=== PATIENT | male | born 1930 | race Caucasian/White ===

== ENCOUNTER 2017-05-12 11:42 | Inpatient (IN) ==
[2017-05-12] MEDS ORDERED: 0.9 % SODIUM CHLORIDE 1,000 ML IV ONE (12:08)
[2017-05-12 13:05] LABS: Basophils # (Auto) 0 K/mcL (0.0-0.3); Basophils % (Auto) 0.7 % (0.0-2.0); Eosinophils # (Auto) 0.1 K/mcL (0.0-0.7); Eosinophils % (Auto) 1.9 % (0.0-7.0); Granulocytes % (Auto) 68.3 % (38.0-78.0); Lymphocytes # (Auto) 1.4 K/mcL (1.5-4.8); Lymphocytes % (Auto) 21.2 % (15.5-49.0); Mean Cell Volume 108.4 fL (80.0-100.0); Mean Corpuscular HGB Conc 33.2 g/dL (31.0-36.0); Monocytes # (Auto) 0.5 K/mcL (0.1-0.9); Monocytes % (Auto) 7.9 % (1.0-12.0); Platelet Count 95 K/mcL (140-440); RBC 3.39 M/mcL (4.50-5.90)
[2017-05-12 13:24] LABS: ALT/SGPT 31 U/l (0-40); Albumin 3.5 gm/dL (3.2-5.2); Albumin/Globulin Ratio 1.3 (1.0-2.3); Alkaline Phosphatase 89 U/L (39-117); Blood Urea Nitrogen 47 mg/dl (8-23)
--- NOTE | 2017-05-12 14:33 | XRay Report ---
CLINICAL INFORMATION: Dyspnea COMPARISON: 11/01/2015 FINDINGS: The heart is moderately enlarged - slightly increased. Pacemaker leads in stable, satisfactory position. Mediastinum is normal. The pulmonary vessels are slightly distended and there is minimal interstitial edema. No infiltrates or effusions. IMPRESSION: Mild CHF Interpreted and Authenticated by: Darrian Cody 05/12/17
--- NOTE | 2017-05-12 15:15 | Emergency Department Note ---
General Adult HPI - General Chief complaint: Shortness of Breath/Dyspnea Stated complaint: sob, wheezing Time Seen by Provider: 05/12/17 11:48 Source: patient Mode of arrival: ambulatory Limitations: no limitations - History of Present Illness HPI Narrative: 86-year-old male presents with shortness of breath and wound to the right knee. Shortness of breath but worsening over the last 3 weeks. Much worse over the last few days according to his . Patient is extremely hard of hearing and poor historian. is answering most questions. She states he does have a history of CHF so she was thinking it was related to CHF but he is definitely getting worse. She also has some generalized weakness and is complaining of being very cold. He denies any pain. Positive chills, unknown fever. No dysuria or frequency. No home treatments. No recent travel. - Related Data Home Medications Medication Instructions Recorded Confirmed Levothyroxine [Synthroid] 25 mcg PO DAILY 09/17/15 05/12/17 Lovastatin 10 mg PO DAILY 09/17/15 05/12/17 carvedilol 12.5 mg tablet 25 mg PO BID 07/27/16 05/12/17 Furosemide [Lasix] 20 mg PO DAILY 05/12/17 05/12/17 Potassium Chloride [Klor-Con M20] 20 meq PO BID 05/12/17 05/12/17 Allergies Allergy/AdvReac Type Severity Reaction Status Date / Time No Known Drug Allergies Allergy Verified 04/08/17 10:20 Review of Systems All systems ED: reviewed and negative except as stated. Past Medical History - Past Medical History Medical history: Reports: aortic aneurysm, CHF, hyperlipidemia, hypertension, TIA, other (Pressure ulcers, CAD, bradycardia, renal insufficiency, peripheral vascular disease) Surgical history ED: Reports: cataract, pacemaker/AICD, other (AAA repair, cataract surgery, inguinal abscess I&D) - Social History smoking status: Former smoker Alcohol use: Reports: None Drug use: Reports: none Physical Exam - General Limitations: no limitations General appearance: alert - Head Head exam: atraumatic, normocephalic, normal inspection - Eye Eye exam: Present: normal appearance. Absent: conjunctival injection - ENT ENT exam: normal exam, normal oropharynx, mucous membranes moist, TM's normal bilaterally, normal external ear exam - Neck Neck exam: Present: normal inspection, trachea midline. Absent: tenderness, lymphadenopathy - Chest Chest inspection: Present: normal inspection, symmetric chest wall rise - Respiratory Respiratory exam: Present: other (Lung sounds diminished at the bases bilaterally otherwise clear throughout). Absent: respiratory distress, accessory muscle use - Cardiovascular Cardiovascular exam: Present: regular rate, normal heart sounds - Abdominal Exam Abdominal exam: Present: soft, normal bowel sounds. Absent: distention, tenderness - Extremities Exam Extremities exam: Present: normal inspection, normal capillary refill. Absent: pedal edema - Neurological Exam Neurological exam: Present: alert, oriented X3 (But very hard of hearing) - Psychiatric Psychiatric exam: Present: normal affect, normal mood - Skin Skin exam: Present: warm, dry, intact, normal color Course Course Narrative: VQ scan negative for PE. Dr. De La Paz, hospitalist agrees to admit patient. Vital Signs Temperature 95.9 F L 05/12/17 11:42 Pulse Rate 61 05/12/17 11:42 Respiratory Rate 19 05/12/17 11:42 Blood Pressure 97/67 05/12/17 11:42 Pulse Oximetry (%) 100 05/12/17 11:42 Temperature 95.9 F L 05/12/17 11:42 Pulse Rate 101 H 05/12/17 16:53 Respiratory Rate 20 05/12/17 16:53 Blood Pressure 99/58 05/12/17 16:53 Pulse Oximetry (%) 99 05/12/17 16:53 Medical Decision Making - Lab Data Lab results reviewed: Yes I reviewed the patient's lab results. Result diagrams: 05/12/17 12:03 05/12/17 12:03 Lab Results 05/12/17 05/12/17 05/12/17 Range/Units 12:03 12:03 12:03 WBC 6.7 (4.5-11.0) K/mcL RBC 3.39 L (4.50-5.90) M/mcL Hgb 12.2 L (13.5-16.5) g/dL Hct 36.7 L (41.0-55.0) % MCV 108.4 H (80.0-100.0) fL MCH 36.0 H (26.0-34.0) pg MCHC 33.2 (31.0-36.0) g/dL RDW 20.0 H (11.5-14.5) % Plt Count 95 L (140-440) K/mcL MPV 8.9 (7.4-10.4) fL Gran % 68.3 (38.0-78.0) % Lymph % (Auto) 21.2 (15.5-49.0) % [place] % (Auto) 7.9 (1.0-12.0) % Eos % (Auto) 1.9 (0.0-7.0) % Baso % (Auto) 0.7 (0.0-2.0) % Gran # 4.6 (1.8-8.0) K/mcL Lymph # (Auto) 1.4 L (1.5-4.8) K/mcL [place] # (Auto) 0.5 (0.1-0.9) K/mcL Eos # (Auto) 0.1 (0.0-0.7) K/mcL Baso # (Auto) 0 (0.0-0.3) K/mcL D-Dimer 7.08 H (0.00-0.40) ug/ml VBG Lactic Acid (0.5-2.2) mmol/L Sodium 138 (133-145) mmol/L Potassium 4.9 (3.3-5.1) mmol/L Chloride 101 (96-108) mmol/L Carbon Dioxide 20 L (22-30) mmol/L Anion Gap 17.0 H (8-16) BUN 47 H (8-23) mg/dl Creatinine 2.2 H (0.7-1.2) mg/dl GFR Calculation 26 Glucose 124 H (70-105) mg/dL Calcium 8.8 (8.6-10.4) mg/dl Total Bilirubin 2.8 H (0.0-1.0) mg/dL AST 37 (0-37) U/l ALT 31 (0-40) U/l Alkaline Phosphatase 89 (39-117) U/L Troponin T (0-0.03) ng/ml NT-Pro-B Natriuret Pep 17516.0 H (0-450) pg/ml Total Protein 6.3 (5.9-8.4) gm/dL Albumin 3.5 (3.2-5.2) gm/dL Globulin 2.8 (2.2-3.7) gm/dL Albumin/Globulin Ratio 1.3 (1.0-2.3) Urine Color Urine Appearance Urine pH (5.0-9.0) Ur Specific [place] (1.000-1.035) Urine Protein (NEG) mg/dL Urine Glucose (UA) (NEG) mg/dL Urine Ketones (NEG) mg/dL Urine Occult Blood (<0.03) mg/dL Urine Nitrate (NEG) Urine Bilirubin (NEG) mg/dL Urine Urobilinogen (NEG) mg/dL Ur Leukocyte Esterase (NEG) /uL Urine RBC (0-1) /hpf Urine WBC (0-4) /hpf Ur Squamous Epith Cells (0-4) /hpf Ur Transition Epith Cell (0-2) /hpf Amorphous Crystals (0) /hpf Urine Bacteria (0) /hpf Urine Mucus (0) /hpf Ur Culture Indicated? 05/12/17 05/12/17 05/12/17 Range/Units 12:03 12:03 15:00 WBC (4.5-11.0) K/mcL RBC (4.50-5.90) M/mcL Hgb (13.5-16.5) g/dL Hct (41.0-55.0) % MCV (80.0-100.0) fL MCH (26.0-34.0) pg MCHC (31.0-36.0) g/dL RDW (11.5-14.5) % Plt Count (140-440) K/mcL MPV (7.4-10.4) fL Gran % (38.0-78.0) % Lymph % (Auto) (15.5-49.0) % [place] % (Auto) (1.0-12.0) % Eos % (Auto) (0.0-7.0) % Baso % (Auto) (0.0-2.0) % Gran # (1.8-8.0) K/mcL Lymph # (Auto) (1.5-4.8) K/mcL [place] # (Auto) (0.1-0.9) K/mcL Eos # (Auto) (0.0-0.7) K/mcL Baso # (Auto) (0.0-0.3) K/mcL D-Dimer (0.00-0.40) ug/ml VBG Lactic Acid 3.7 H (0.5-2.2) mmol/L Sodium (133-145) mmol/L Potassium (3.3-5.1) mmol/L Chloride (96-108) mmol/L Carbon Dioxide (22-30) mmol/L Anion Gap (8-16) BUN (8-23) mg/dl Creatinine (0.7-1.2) mg/dl GFR Calculation Glucose (70-105) mg/dL Calcium (8.6-10.4) mg/dl Total Bilirubin (0.0-1.0) mg/dL AST (0-37) U/l ALT (0-40) U/l Alkaline Phosphatase (39-117) U/L Troponin T < 0.01 (0-0.03) ng/ml NT-Pro-B Natriuret Pep (0-450) pg/ml Total Protein (5.9-8.4) gm/dL Albumin (3.2-5.2) gm/dL Globulin (2.2-3.7) gm/dL Albumin/Globulin Ratio (1.0-2.3) Urine Color Lara Urine Appearance Cloudy Urine pH 6.0 (5.0-9.0) Ur Specific [place] 1.013 (1.000-1.035) Urine Protein 30 A (NEG) mg/dL Urine Glucose (UA) Negative (NEG) mg/dL Urine Ketones Neg (NEG) mg/dL Urine Occult Blood 0.2 A (<0.03) mg/dL Urine Nitrate Neg (NEG) Urine Bilirubin Neg (NEG) mg/dL Urine Urobilinogen 2.0 A (NEG) mg/dL Ur Leukocyte Esterase 500 A (NEG) /uL Urine RBC 20 H (0-1) /hpf Urine WBC > 182 H (0-4) /hpf Ur Squamous Epith Cells 0 (0-4) /hpf Ur Transition Epith Cell 2 (0-2) /hpf Amorphous Crystals Few A (0) /hpf Urine Bacteria 0 (0) /hpf Urine Mucus Few (0) /hpf Ur Culture Indicated? Yes - Radiology Data Radiology results reviewed: Yes I reviewed the patient's radiology results. Disposition Pt seen by [facility]ANT/PA only: No Clinical Impression: Urinary tract infection, CHF (congestive heart failure) Disposition: Xfer As Inpt ([facility]) Condition: Fair Referrals: Christi Santamaria MD [Primary Care Provider] - Time of Disposition: 16:58
[2017-05-12 16:10] LABS: Appearance,Urine CLOUDY; Bacteria,Urine 0 /hpf (0); Bilirubin,Urine NEG (NEG); Color,Urine AMBER; Glucose,Urine (UA) NEGATIVE (NEG); Leukocyte Esterase,Urine 500 /uL (NEG); Mucus,Urine FEW /hpf (0); Nitrate,Urine NEG (NEG); Protein,Urine 30 mg/dL (NEG); Specific Gravity,Urine 1.013 (1.000-1.035); Urine Amorphous Crystals FEW /hpf (0); Urine Blood 0.2 mg/dL (<0.03); Urine RBC 20 /hpf (0-1); Urine Squamous Epithelial Cell 0 /hpf (0-4); Urine Transitional Epi Cells 2 /hpf (0-2); Urine WBC > 182 /hpf (0-4)
--- NOTE | 2017-05-12 17:46 | Emergency Department Note ---
ED Note Addendum Note Addendum: I examined this patient and agree with [facility]'s assessment and plan for admission.
[2017-05-12] MEDS ORDERED: cefTRIAXone 1 GM in DEXTROSE 5% IN WATER 50 ML IV ONE (18:21)
[2017-05-12] MEDS ORDERED: ONDANSETRON 4 MG/2 ML VIAL IV PRN (19:23)
[2017-05-12] MEDS ORDERED: HYDROcodone/APAP 5/325MG TABLET PO PRN (19:23)
[2017-05-12] MEDS ORDERED: NALOXONE HCL 0.4 MG/ML VIAL IV PRN (19:23)
[2017-05-12] MEDS ORDERED: ACETAMINOPHEN 325 MG TABLET PO PRN (19:23)
[2017-05-12] MEDS ORDERED: 0.9 % SODIUM CHLORIDE 500 ML IV ONE (19:23)
--- NOTE | 2017-05-12 20:16 | Internal Med History&Physical ---
Medical - H&P: [facility] Patient information: Note initiated : 05/12/17 at 8:16 pm Service Date, if different from initiated Date: [] Patient: Tico Dominguez 86 y/o M admitted on 05/12/17 for sob, wheezing. Chief Complaint: [] History of present illness: Mr. Dominguez is a 86 year old Male with multple medical issues presents to the ER with shortness of breath, weakness and possibly some confusion. The patient is a very poor historian and did not provide any meaningful history , his who volunteer in this hospital was at bedside who provided much of the history The patient has multiple medical issues and has been progressively getting worse over the last 2-3 weeks. he has been more weak, tired fatigued and progressively more short of breath and has been wheezing. She has noticed that his effort tolerance has reduced significantly. His condition deteriorated more rapidly over the last 1 week. He fell down and scrapped his knee. The patient notes the only symptom he has is that he is feeling cold. Beyond that he did not complain much. According to the the patient also has had some decline in his mental status. In the ER his temp was on the lower end, labs showed wbc 6.7, ghb 12.2, NA 138, K 4.9, bicarb 20, creat 2.2 (has ckd) glucose 124. D dmier was 7, Lactic acide 3.7, bNP 17434, trop neg Ua suggestive of UTI, muro placed with significant amount of cloudy urine. CXR done which showed mild chf, no pneumonia VQ scan done which was negative for PE. The patient was therefore admitted to the hospital for further management. 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 (Chronic) Unspecified systolic heart failure (Chronic) Atherosclerotic heart disease of [place] coronary artery without angina pectoris (Chronic) Mixed hyperlipidemia (Chronic) Bradycardia (Chronic) Smoking (Chronic) CHF (congestive heart failure) (Chronic) Renal insufficiency (Chronic) CAD (coronary artery disease) (Chronic) Unspecified kidney failure (Chronic) Left leg cellulitis (Acute) Systolic heart failure, chronic (Acute) HTN (hypertension) (Acute) Peripheral vascular disease (Acute) Renal failure, acute on chronic (Acute) TIA (transient ischemic attack) (Chronic) Surgical history: Past Surgical History (Last Reviewed 04/08/17 @ 10:21 by Selena Campuzano RN) History of AAA (abdominal aortic aneurysm) repair (Chronic) History of cardiac pacemaker (Chronic) History of cataract surgery (Chronic) History of surgery (Chronic) Pertinent family history: Family History (Last Reviewed 04/08/17 @ 10:21 by Selena Campuzano RN) Father Stroke Mother Heart disease Medical - H&P: Meds Home Medications Medication Instructions Recorded Confirmed Type Levothyroxine [Synthroid] 25 mcg PO DAILY 09/17/15 05/12/17 History Lovastatin 10 mg PO DAILY 09/17/15 05/12/17 History carvedilol 12.5 mg tablet 25 mg PO BID 07/27/16 05/12/17 History Furosemide [Lasix] 20 mg PO DAILY 05/12/17 05/12/17 History Potassium Chloride [Klor-Con M20] 20 meq PO BID 05/12/17 05/12/17 History Allergies Allergy/AdvReac Type Severity Reaction Status Date / Time No Known Drug Allergies Allergy Verified 04/08/17 10:20 Medical - H&P: Exam - Constitutional Vitals: Temp Pulse Resp BP Pulse Ox 97.8 F 63 18 107/88 91 05/12/17 19:10 05/12/17 19:10 05/12/17 19:10 05/12/17 19:10 05/12/17 19:10 Exam: GENERAL: The patient is a well-developed, well-nourished in no apparent distress. Is alert and oriented x1. VITAL SIGNS: Reviewed and as noted elsewhere. HEENT: Head is normocephalic and atraumatic. Extraocular muscles are intact. Pupils are equal, round, and reactive to light. Nares appeared normal. Mouth appears any without lesions. Mucous membranes are dry NECK: Normal to inspection, Supple, No lymphadenopathy or thyromegaly. LUNGS: Air entry equal on both sides, present wheezing,No crackles or rhonchi noted. No accessory muscles of respiration HEART: Regular rate and rhythm normal, S1 and S2 heard, no Gallop, S3 or Rub Noted, No Gross murmur heard. ABDOMEN: Soft, nontender, and nondistended. Positive bowel sounds. No hepatosplenomegaly was noted. muro noted with 2000ml of dark mildly cloudy urine. EXTREMITIES: No cyanosis, clubbing, rash, lesions or edema, right knee has a abrasion, 2x2 cms, no e/o infection. NEUROLOGIC: Cranial nerves II through XII are grossly intact. Motor and Sensory System Grossly Intact PSYCHIATRIC: confused, did not maintain eye contact, did not answer questions appropriately. SKIN: No ulceration or wounds noted, No jaundice, No rash noted. Medical - H&P: Reslt - Labs CBC & Chem 7: 05/12/17 12:03 05/12/17 12:03 Labs: Short CBC 05/12/17 Range/Units 12:03 WBC 6.7 (4.5-11.0) K/mcL Hgb 12.2 L (13.5-16.5) g/dL Hct 36.7 L (41.0-55.0) % Plt Count 95 L (140-440) K/mcL BMP 05/12/17 12:03 Sodium 138 Potassium 4.9 Chloride 101 Carbon Dioxide 20 L BUN 47 H Creatinine 2.2 H Glucose 124 H Calcium 8.8 Cardiac Enzymes 05/12/17 Range/Units 12:03 Troponin T < 0.01 (0-0.03) ng/ml Liver Function 05/12/17 Range/Units 12:03 Total Bilirubin 2.8 H (0.0-1.0) mg/dL AST 37 (0-37) U/l ALT 31 (0-40) U/l Alkaline Phosphatase 89 (39-117) U/L Albumin 3.5 (3.2-5.2) gm/dL Urine 05/12/17 Range/Units 15:00 Urine Color Lara Urine Appearance Cloudy Urine pH 6.0 (5.0-9.0) Ur Specific [place] 1.013 (1.000-1.035) Urine Protein 30 A (NEG) mg/dL Urine Glucose (UA) Negative (NEG) mg/dL Medical - H&P: A/P - Narrative A/P Narrative: A/P Sepsis Lactic Acidosis Congestive heart failure, poor lvef as per last echo. 20% lvef early this year Altered mental status,/ septic Encephalopathy Chronic Kidney Disease thrombocytopenia Reactive Air way disease HTN Coronary Artery disease Plan Admit to telemetry IV bolus fluid 500cc for now given x ray suggestive of chf and bp is normal. Good urine output. Pt is DNR, IV pressors, bipap and cental line if needed (ok by ) IV cefepime for UTI, (previous cultures had pseudomonas) IV steroids and duonebs for reactive airway disease, no known history of Copd or asthma, monitor resp status repeat labs, lactic acid. check b12 and folate for thrombocytopenia. , platlet count was 95 hold bp meds given low temp check tsh and active warming for now. creat is 2.2, baseline is 2.0, monitor closely High risk of mortality given his multiple comorbid factors and presence of sepsis discussed with , Patient is DNr Diet cardiac OT/ST/ PT eval hep sq for dvt prophylaxis. Social History - Social History marital status: occupational status: retired - Tobacco smoking status: Former smoker - Alcohol alcohol intake frequency: a few times a week - Substance use substance use type: does not use
[2017-05-12] MEDS ORDERED: CEFEPIME 1 GM VIAL ONE (20:53)
[2017-05-12] MEDS ORDERED: cefTRIAXone 1 GM VIAL ONE (21:00)
[2017-05-12 21:08] LABS: Vitamin B12 1897 pg/ml (243-894)
[2017-05-12 21:12] LABS: Folate > 20.0 ng/mL (4.2-19.9)
[2017-05-12] MEDS: IPRATROPIUM/ALBUTEROL 3 ML AMPUL.NEB NEB SCH ×2 (21:18→23:18)
[2017-05-12] MEDS: CEFEPIME 1 GM in DEXTROSE 5% IN WATER 50 ML IV SCH (21:23)
[2017-05-12] MEDS ORDERED: LORazepam 2 MG/ML VIAL ONE (22:04)
[2017-05-12] MEDS ORDERED: LORazepam 2 MG/ML VIAL IM ONE (22:10)
[2017-05-12] MEDS ORDERED: OLANZapine 10 MG VIAL IM STA (22:17)
[2017-05-12] MEDS ORDERED: OLANZapine 10 MG VIAL IM ONE (22:28)
[2017-05-12] MEDS: HEPARIN 5,000 UNIT/ML VIAL SQ SCH (23:13)
[2017-05-12] MEDS: methylPREDNISolone SOD SUCC 125 MG/2 ML VIAL IV SCH ×2 (23:13→23:17)
[2017-05-12] MEDS: POTASSIUM CHLORIDE 20 MEQ TABLET PO SCH (23:14)
[2017-05-13] MEDS: IPRATROPIUM/ALBUTEROL 3 ML AMPUL.NEB NEB SCH ×6 (02:39→23:12)
[2017-05-13] MEDS: methylPREDNISolone SOD SUCC 125 MG/2 ML VIAL IV SCH ×3 (05:21→22:40)
[2017-05-13 05:33] LABS: Basophils # (Auto) 0 K/mcL (0.0-0.3); Basophils % (Auto) 0.1 % (0.0-2.0); Eosinophils # (Auto) 0 K/mcL (0.0-0.7); Eosinophils % (Auto) 0.4 % (0.0-7.0); Granulocytes % (Auto) 90.3 % (38.0-78.0); Lymphocytes # (Auto) 0.7 K/mcL (1.5-4.8); Mean Cell Volume 109.3 fL (80.0-100.0); Mean Corpuscular HGB Conc 33.1 g/dL (31.0-36.0); Mean Corpuscular Hemoglobin 36.2 pg (26.0-34.0); Monocytes # (Auto) 0.1 K/mcL (0.1-0.9); Monocytes % (Auto) 1.2 % (1.0-12.0); Platelet Count 86 K/mcL (140-440); RBC 3.52 M/mcL (4.50-5.90); Red Cell Distribution Width 19.3 % (11.5-14.5)
[2017-05-13] MEDS ORDERED: fentaNYL 100 MCG/2 ML VIAL IV ONE (05:54)
[2017-05-13 06:10] LABS: ALT/SGPT 32 U/l (0-40); Albumin 3.3 gm/dL (3.2-5.2); Albumin/Globulin Ratio 1.2 (1.0-2.3); Alkaline Phosphatase 79 U/L (39-117); Bilirubin,Direct 1.5 mg/dL (0.0-0.3); Blood Urea Nitrogen 48 mg/dl (8-23); Gamma Glutamyl Transpeptidase 51 U/L (8-61); Magnesium 2.4 mg/dL (1.6-2.5)
[2017-05-13] MEDS: LEVOTHYROXINE 25 MCG TABLET PO SCH (08:43)
[2017-05-13] MEDS: POTASSIUM CHLORIDE 20 MEQ TABLET PO SCH ×2 (08:44→17:41)
[2017-05-13] MEDS: SIMVASTATIN 10 MG TABLET PO SCH (08:45)
[2017-05-13] MEDS: HEPARIN 5,000 UNIT/ML VIAL SQ SCH ×2 (09:06→22:40)
--- NOTE | 2017-05-13 10:28 | Ultrasound Report ---
History: Elevated liver enzymes Findings: The liver is normal in size. The parenchyma is somewhat echogenic suggesting mild fatty infiltration. Normal blood flow is demonstrated in the hepatic and portal veins. The fatty infiltration liver is a chronic finding which was also noted on a prior ultrasound done in [facility] on 06/27/11. The gallbladder wall is thickened and measures 6.9 mm. No stones are seen within the lumen and there is no sludge. There is a trace amount of pericholecystic fluid. The thickening of the gallbladder wall has increased since 2010. We are unable to determine whether not the patient had a positive Flores's sign due to decreased mental status and combativeness. The common bile duct is normal in caliber and measures 4.5 mm. The pancreas is normal in size and homogeneous. No mass is identified. Impression: Thickened gallbladder wall measuring up to 6.9 mm. This is nonspecific which may be seen with low serum albumin, nonfasting, acute or chronic cholecystitis or hepatitis Interpreted and Authenticated by: James Cuenca 05/13/17
[2017-05-13] MEDS ORDERED: LORazepam 2 MG/ML VIAL IV ONE (10:30)
[2017-05-13] MEDS: CEFEPIME 1 GM in DEXTROSE 5% IN WATER 50 ML IV SCH (12:48)
--- NOTE | 2017-05-13 13:43 | Cat Scan Report ---
CLINICAL INFORMATION: Congestive heart failure, hypoxia and shortness of breath COMPARISON: Chest x-ray on 05/12/17 TECHNIQUE: 2.5 mm axial slices were obtained from the lung apices through the bases without intravenous contrast. Sagittal, coronal and axial reformatted images were processed and reviewed at bone, lung and soft tissue windows. 7 mm axial MIP images were also reconstructed. FINDINGS: The heart is moderately enlarged. There is a dual-chamber pacemaker. Densely calcified plaques are present in the coronary arteries. No pericardial effusion is present. There is a moderate-sized layering pleural effusion on the right and a small layering left-sided pleural effusion. This is causing mild atelectasis in the posterior basal segments of both lower lobes, right greater than left. There are generalized groundglass alveolar opacities in both lungs probably an the dependent portions of the upper lobes and lower lobes. There is also some thickening of the interlobular septa. Comparison with the prior chest x-ray from 05/12/17 shows the pleural effusions have enlarged and the pulmonary edema is new. There are several benign-appearing lymph nodes in the mediastinum. Many of them have fatty central froilan. IMPRESSION: Congestive heart failure with pulmonary edema and bilateral pleural effusions Interpreted and Authenticated by: James Cuenca 05/13/17
[2017-05-13] MEDS ORDERED: FUROSEMIDE 40 MG/4 ML VIAL IV ONE (14:04)
[2017-05-13 18:02] LABS: Blood Urea Nitrogen 46 mg/dl (8-23)
--- NOTE | 2017-05-13 18:28 | Internal Med Progress Note ---
Medical - PN: Subj Patient information: Note initiated : 05/13/17 at 6:17 pm Service Date, if different from initiated Date: [] Patient: Tico Dominguez 86 y/o M admitted on 05/12/17 for SOB, Wheezing/UTI, Sepsis. Chief Complaint: [] Interval history: Mr. Dominguez is a 86 year old Male with multple medical issues presents to the ER with shortness of breath, weakness and possibly some confusion. The patient is a very poor historian and did not provide any meaningful history , his who volunteer in this hospital was at bedside who provided much of the history The patient has multiple medical issues and has been progressively getting worse over the last 2-3 weeks. he has been more weak, tired fatigued and progressively more short of breath and has been wheezing. She has noticed that his effort tolerance has reduced significantly. His condition deteriorated more rapidly over the last 1 week. He fell down and scrapped his knee. The patient notes the only symptom he has is that he is feeling cold. Beyond that he did not complain much. According to the the patient also has had some decline in his mental status. In the ER his temp was on the lower end, labs showed wbc 6.7, ghb 12.2, NA 138, K 4.9, bicarb 20, creat 2.2 (has ckd) glucose 124. D dmier was 7, Lactic acide 3.7, bNP 55607, trop neg Ua suggestive of UTI, muro placed with significant amount of cloudy urine. CXR done which showed mild chf, no pneumonia VQ scan done which was negative for PE. The patient was therefore admitted to the hospital for further management May 13 Patient seen examined overnight patient became more agitated and anxious, trying to get out of bed, aggresive to wards care staff and provider needing restrains to keep him harming self and removing medical devices. He remained calm during the day, He has intermittent wheezing in the day. CT chest done showed CHF K was elevated this AM responded well to IV lasix, repeat came down to normal levels Plan to continue iV abx, duonebs and steroids, IV lasix today Pertinent ROS: unable. - Constitutional Vitals: Vital Signs Temp Pulse Resp BP Pulse Ox 97.8 F 62 16 125/73 98 05/13/17 16:00 05/13/17 15:51 05/13/17 16:00 05/13/17 16:00 05/13/17 16:00 Period Temp Pulse Resp BP Sys/Michael Pulse Ox Last 24 Hr 95.9 F-98.4 F 30-101 10-28 46-125/33-97 87-100 Intake and Output 05/13/17 05/13/17 05/13/17 05:59 13:59 21:59 Output Total 375 / 375 150 / 150 400 / 400 Balance -375 / -375 -150 / -150 -400 / -400 Weight 167 lb 14.4 oz Patient Weight 05/14/17 05:59 Weight 167 lb 14.4 oz Intake & Output: Intake & Output 05/13/17 05/13/17 05/13/17 05:59 13:59 21:59 Output Total 375 / 375 150 / 150 400 / 400 Balance -375 / -375 -150 / -150 -400 / -400 Weight 167 lb 14.4 oz Output: Urine Catheter Amount 375 / 375 150 / 150 400 / 400 Other: # Bowel Movements 0 Exam: Constitutional; Afebrile, agiated and aggresive, did not follow commands. Eyes- No icterus, , No periorbital swelling Ears- Ext ear normal, hearing normal to conversation. Neck- Midline trachea, supple Respiratory system: Air Entry equal on both sides, mil basilar crackles. CVS- Rate rhythm regular, S1,S2 heard, no gallop, no rub. Abdomen- Soft nontender abdomen, no organomegaly, no tenderness, no guarding or rigidity, VESSEL SCRAPPER- AOOx0, moving all extremities, no gross focal deficit noted. Medical - PN: Obj Da - Labs CBC & Chem 7: 05/13/17 04:00 05/13/17 17:04 Labs: Abnormal Lab Results 05/13/17 05/13/17 05/13/17 17:04 04:00 04:00 RBC 3.52 L Hgb 12.7 L Hct 38.5 L MCV 109.3 H MCH 36.2 H RDW 19.3 H Plt Count 86 L Gran % 90.3 H Lymph % (Auto) 8.0 L Lymph # (Auto) 0.7 L D-Dimer VBG Lactic Acid Potassium 5.3 H Carbon Dioxide 20 L 21 L Anion Gap 17.0 H BUN 46 H 48 H Creatinine 2.1 H 2.1 H Glucose 223 H 222 H Uric Acid 11.0 H Total Bilirubin 3.3 H Direct Bilirubin 1.5 H Lactate Dehydrogenase 333 H NT-Pro-B Natriuret Pep Vitamin B12 Folate Urine Protein Urine Occult Blood Urine Urobilinogen Ur Leukocyte Esterase Urine RBC Urine WBC Amorphous Crystals 05/12/17 05/12/17 05/12/17 19:35 19:35 15:00 RBC Hgb Hct MCV MCH RDW Plt Count Gran % Lymph % (Auto) Lymph # (Auto) D-Dimer VBG Lactic Acid Potassium Carbon Dioxide Anion Gap BUN Creatinine Glucose Uric Acid Total Bilirubin Direct Bilirubin Lactate Dehydrogenase NT-Pro-B Natriuret Pep Vitamin B12 1897 H Folate > 20.0 H Urine Protein 30 A Urine Occult Blood 0.2 A Urine Urobilinogen 2.0 A Ur Leukocyte Esterase 500 A Urine RBC 20 H Urine WBC > 182 H Amorphous Crystals Few A 05/12/17 05/12/17 05/12/17 12:03 12:03 12:03 RBC Hgb Hct MCV MCH RDW Plt Count Gran % Lymph % (Auto) Lymph # (Auto) D-Dimer 7.08 H VBG Lactic Acid 3.7 H Potassium Carbon Dioxide 20 L Anion Gap 17.0 H BUN 47 H Creatinine 2.2 H Glucose 124 H Uric Acid Total Bilirubin 2.8 H Direct Bilirubin Lactate Dehydrogenase NT-Pro-B Natriuret Pep 18363.0 H Vitamin B12 Folate Urine Protein Urine Occult Blood Urine Urobilinogen Ur Leukocyte Esterase Urine RBC Urine WBC Amorphous Crystals 05/12/17 12:03 RBC 3.39 L Hgb 12.2 L Hct 36.7 L MCV 108.4 H MCH 36.0 H RDW 20.0 H Plt Count 95 L Gran % Lymph % (Auto) Lymph # (Auto) 1.4 L D-Dimer VBG Lactic Acid Potassium Carbon Dioxide Anion Gap BUN Creatinine Glucose Uric Acid Total Bilirubin Direct Bilirubin Lactate Dehydrogenase NT-Pro-B Natriuret Pep Vitamin B12 Folate Urine Protein Urine Occult Blood Urine Urobilinogen Ur Leukocyte Esterase Urine RBC Urine WBC Amorphous Crystals Meds: Medications Acetaminophen (Tylenol) 650 mg PO Q6HP PRN PRN Reason: PAIN/FEVER > 101 Hydrocodone Bitart/Acetaminophen ([place] 5/325mg) 1 tab PO Q4HP PRN PRN Reason: Pain Albuterol/Ipratropium (Duoneb) [address] [facility] Last Admin: 05/13/17 15:47 Dose: 3 ml Heparin Sodium (Porcine) (Heparin) 5,[address] [facility] Last Admin: 05/13/17 09:06 Dose: 5,000 unit Cefepime HCl 1 gm/ Dextrose 50 mls @ 100 mls/hr IV DAILY [facility] Last Admin: 05/13/17 12:48 Dose: 100 mls/hr Levothyroxine Sodium (Synthroid) [address] [facility] Last Admin: 05/13/17 08:43 Dose: Not Given Methylprednisolone Sodium Succinate (Solu-Medrol) 62.[address] [facility] Last Admin: 05/13/17 13:53 Dose: 62.5 mg Naloxone HCl (Narcan) 0.1 mg IV Q2MIN PRN PRN Reason: Opiate Reversal Ondansetron HCl (Zofran) 4 mg IV Q4HP PRN PRN Reason: Nausea And Vomiting Potassium Chloride (Kdur) [address] [facility] Last Admin: 05/13/17 17:41 Dose: Not Given Simvastatin (Zocor) [address] [facility] Last Admin: 05/13/17 08:45 Dose: Not Given Medical - PN: A/P - Time Spent With Patient Total time spent is greater than 50% in coordination of care (as documented) at patient's floor/unit and/or counseling patient: - Narrative A/P Narrative: A/P Sepsis Lactic Acidosis- resolved. Congestive heart failure, poor lvef as per last echo. 20% lvef early this year Altered mental status,/ septic Encephalopathy Chronic Kidney Disease thrombocytopenia Reactive Air way disease HTN Coronary Artery disease cholecystitis? Delerium Plan continue to monitor on telemetery repeat lactate is normal, IV lasix today, for fliuid overload IV cefepime for UTI, (previous cultures had pseudomonas) , await this visit cultures results. IV steroids and duonebs for reactive airway disease, no known history of Copd or asthma, monitor resp status b12, folate is normal Platlet counts dropped to 86, monitor for now, no e/o bleed hold bp meds tsh normal, creat is 2.1 High risk of mortality given his multiple comorbid factors and presence of sepsis discussed with , Patient is DNr Diet cardiac OT/ST/ PT eval hep sq for dvt prophylaxis. Medical - PN: Qual - VTE Deep Vein Thrombosis/Pulmonary Embolism Present on Admission: No
[2017-05-13] MEDS ORDERED: LORazepam 2 MG/ML VIAL IV PRN (19:43)
[2017-05-13] MEDS ORDERED: LORazepam 2 MG/ML VIAL ONE (20:05)
[2017-05-14] MEDS ORDERED: 0.9 % SODIUM CHLORIDE 500 ML IV ONE (02:44)
[2017-05-14] MEDS ORDERED: ACETAMINOPHEN 1,000 MG/100 ML BOTTLE IV ONE (02:44)
[2017-05-14] MEDS: IPRATROPIUM/ALBUTEROL 3 ML AMPUL.NEB NEB SCH ×6 (03:17→22:27)
[2017-05-14 05:11] LABS: Basophils # (Auto) 0 K/mcL (0.0-0.3); Basophils % (Auto) 0.2 % (0.0-2.0); Eosinophils # (Auto) 0 K/mcL (0.0-0.7); Eosinophils % (Auto) 0.1 % (0.0-7.0); Granulocytes % (Auto) 92.8 % (38.0-78.0); Lymphocytes # (Auto) 0.6 K/mcL (1.5-4.8); Lymphocytes % (Auto) 5.6 % (15.5-49.0); Mean Cell Volume 109.1 fL (80.0-100.0); Mean Corpuscular HGB Conc 33.4 g/dL (31.0-36.0); Mean Corpuscular Hemoglobin 36.4 pg (26.0-34.0); Monocytes # (Auto) 0.1 K/mcL (0.1-0.9); Monocytes % (Auto) 1.3 % (1.0-12.0); Platelet Count 99 K/mcL (140-440); RBC 3.28 M/mcL (4.50-5.90); Red Cell Distribution Width 19.9 % (11.5-14.5)
[2017-05-14 05:31] LABS: ALT/SGPT 29 U/l (0-40); Albumin 2.9 gm/dL (3.2-5.2); Albumin/Globulin Ratio 1.2 (1.0-2.3); Alkaline Phosphatase 62 U/L (39-117); Bilirubin,Direct 0.9 mg/dL (0.0-0.3); Blood Urea Nitrogen 50 mg/dl (8-23); Gamma Glutamyl Transpeptidase 41 U/L (8-61); Magnesium 2.5 mg/dL (1.6-2.5)
[2017-05-14] MEDS: methylPREDNISolone SOD SUCC 125 MG/2 ML VIAL IV SCH ×3 (05:41→21:04)
[2017-05-14] MEDS ORDERED: 0.9 % SODIUM CHLORIDE 250 ML IV ONE ×2 (08:07→13:18)
[2017-05-14] MEDS: LEVOTHYROXINE 25 MCG TABLET PO SCH (09:05)
[2017-05-14] MEDS: POTASSIUM CHLORIDE 20 MEQ TABLET PO SCH ×2 (09:05→17:51)
[2017-05-14] MEDS: CIPROFLOXACIN 400 MG/200 ML BAG IV SCH (09:11)
[2017-05-14] MEDS: HEPARIN 5,000 UNIT/ML VIAL SQ SCH ×2 (09:11→21:04)
[2017-05-14] MEDS: SIMVASTATIN 10 MG TABLET PO SCH (10:58)
[2017-05-14] MEDS ORDERED: LORazepam 2 MG/ML VIAL IV PRN (11:28)
--- NOTE | 2017-05-14 11:34 | Internal Med Progress Note ---
Medical - PN: Subj Patient information: Note initiated : 05/14/17 at 11:32 am Service Date, if different from initiated Date: [] Patient: Tico Dominguez 86 y/o M admitted on 05/12/17 for SOB, Wheezing/UTI, Sepsis. Chief Complaint: [] Interval history: Mr. Dominguez is a 86 year old Male with multple medical issues presents to the ER with shortness of breath, weakness and possibly some confusion. The patient is a very poor historian and did not provide any meaningful history , his who volunteer in this hospital was at bedside who provided much of the history The patient has multiple medical issues and has been progressively getting worse over the last 2-3 weeks. he has been more weak, tired fatigued and progressively more short of breath and has been wheezing. She has noticed that his effort tolerance has reduced significantly. His condition deteriorated more rapidly over the last 1 week. He fell down and scrapped his knee. The patient notes the only symptom he has is that he is feeling cold. Beyond that he did not complain much. According to the the patient also has had some decline in his mental status. In the ER his temp was on the lower end, labs showed wbc 6.7, ghb 12.2, NA 138, K 4.9, bicarb 20, creat 2.2 (has ckd) glucose 124. D dmier was 7, Lactic acide 3.7, bNP 61776, trop neg Ua suggestive of UTI, muro placed with significant amount of cloudy urine. CXR done which showed mild chf, no pneumonia VQ scan done which was negative for PE. The patient was therefore admitted to the hospital for further management May 13 Patient seen examined overnight patient became more agitated and anxious, trying to get out of bed, aggresive to wards care staff and provider needing restrains to keep him harming self and removing medical devices. He remained calm during the day, He has intermittent wheezing in the day. CT chest done showed CHF K was elevated this AM responded well to IV lasix, repeat came down to normal levels Plan to continue iV abx, duonebs and steroids, IV lasix today May 14 patient seen examined drowsy this am, opened eyes to verbal commands and light touch, but did not follow commands sedative given around 3am patient in restraints to avoid harm to self and care providers. to prevent removal of medical devices. His lactic acid was elevated again today, bolus given recheck given his pseudomonas in past was senstive to cipro, change cefepime to cipro, given some cases of cefepime induced encephalophathy. CT scan chest did not show any e/o bronchial lesion to expalin uppe airway wheeze which is intermittent. Pertinent ROS: unable. - Constitutional Vitals: Vital Signs Temp Pulse Resp BP Pulse Ox 97 F 70 18 115/68 100 05/14/17 09:36 05/14/17 11:24 05/14/17 11:24 05/14/17 09:36 05/14/17 09:36 Period Temp Pulse Resp BP Sys/Michael Pulse Ox Last 24 Hr 97 F-97.8 F 59-70 16-20 101-125/59-73 85-100 Intake and Output 05/13/17 05/14/17 05/14/17 21:59 05:59 13:59 Intake Total 0 / 0 450 / 450 Output Total 400 / 400 1000 / 1000 Balance -400 / -400 -1000 / -1000 450 / 450 Weight 168 lb Intake & Output: Intake & Output 05/13/17 05/14/17 05/14/17 21:59 05:59 13:59 Intake Total 0 / 0 450 / 450 Output Total 400 / 400 1000 / 1000 Balance -400 / -400 -1000 / -1000 450 / 450 Weight 168 lb Intake: IV 450 / 450 Oral 0 / 0 Output: Urine Catheter Amount 400 / 400 1000 / 1000 Other: # Bowel Movements 0 0 Exam: Constitutional; Afebrile, sleepy, does not follow commands. Eyes- No icterus, , No periorbital swelling Ears- Ext ear normal, Neck- Midline trachea, supple Respiratory system: Air Entry equal on both sides, mere basilar crackles, no wheezing. CVS- Rate rhythm regular, S1,S2 heard, no gallop, no rub. paced rhythm Abdomen- Soft nontender abdomen, no organomegaly, no tenderness, no guarding or rigidity, SIX SIGMA BLACK TRAINER- AOOx0, moving all extremities, no gross focal deficit noted. Medical - PN: Obj Da - Labs CBC & Chem 7: 05/14/17 03:47 05/14/17 03:47 Labs: Abnormal Lab Results 05/14/17 05/14/17 05/14/17 07:23 03:47 03:47 WBC 11.4 H RBC 3.28 L Hgb 11.9 L Hct 35.8 L MCV 109.1 H MCH 36.4 H RDW 19.9 H Plt Count 99 L Gran % 92.8 H Lymph % (Auto) 5.6 L Gran # 10.6 H Lymph # (Auto) 0.6 L D-Dimer VBG Lactic Acid 2.5 H Potassium Carbon Dioxide 17 L Anion Gap 21.0 H BUN 50 H Creatinine 2.1 H Glucose 216 H Uric Acid 12.0 H Calcium 8.1 L Phosphorus 4.8 H Total Bilirubin 2.3 H Direct Bilirubin 0.9 H AST 44 H Lactate Dehydrogenase 434 H NT-Pro-B Natriuret Pep Total Protein 5.4 L Albumin 2.9 L Vitamin B12 Folate Urine Protein Urine Occult Blood Urine Urobilinogen Ur Leukocyte Esterase Urine RBC Urine WBC Amorphous Crystals 05/13/17 05/13/17 05/13/17 17:04 04:00 04:00 WBC RBC 3.52 L Hgb 12.7 L Hct 38.5 L MCV 109.3 H MCH 36.2 H RDW 19.3 H Plt Count 86 L Gran % 90.3 H Lymph % (Auto) 8.0 L Gran # Lymph # (Auto) 0.7 L D-Dimer VBG Lactic Acid Potassium 5.3 H Carbon Dioxide 20 L 21 L Anion Gap 17.0 H BUN 46 H 48 H Creatinine 2.1 H 2.1 H Glucose 223 H 222 H Uric Acid 11.0 H Calcium Phosphorus Total Bilirubin 3.3 H Direct Bilirubin 1.5 H AST Lactate Dehydrogenase 333 H NT-Pro-B Natriuret Pep Total Protein Albumin Vitamin B12 Folate Urine Protein Urine Occult Blood Urine Urobilinogen Ur Leukocyte Esterase Urine RBC Urine WBC Amorphous Crystals 05/12/17 05/12/17 05/12/17 19:35 19:35 15:00 WBC RBC Hgb Hct MCV MCH RDW Plt Count Gran % Lymph % (Auto) Gran # Lymph # (Auto) D-Dimer VBG Lactic Acid Potassium Carbon Dioxide Anion Gap BUN Creatinine Glucose Uric Acid Calcium Phosphorus Total Bilirubin Direct Bilirubin AST Lactate Dehydrogenase NT-Pro-B Natriuret Pep Total Protein Albumin Vitamin B12 1897 H Folate > 20.0 H Urine Protein 30 A Urine Occult Blood 0.2 A Urine Urobilinogen 2.0 A Ur Leukocyte Esterase 500 A Urine RBC 20 H Urine WBC > 182 H Amorphous Crystals Few A 05/12/17 05/12/17 05/12/17 12:03 12:03 12:03 WBC RBC Hgb Hct MCV MCH RDW Plt Count Gran % Lymph % (Auto) Gran # Lymph # (Auto) D-Dimer 7.08 H VBG Lactic Acid 3.7 H Potassium Carbon Dioxide 20 L Anion Gap 17.0 H BUN 47 H Creatinine 2.2 H Glucose 124 H Uric Acid Calcium Phosphorus Total Bilirubin 2.8 H Direct Bilirubin AST Lactate Dehydrogenase NT-Pro-B Natriuret Pep 32939.0 H Total Protein Albumin Vitamin B12 Folate Urine Protein Urine Occult Blood Urine Urobilinogen Ur Leukocyte Esterase Urine RBC Urine WBC Amorphous Crystals 05/12/17 12:03 WBC RBC 3.39 L Hgb 12.2 L Hct 36.7 L MCV 108.4 H MCH 36.0 H RDW 20.0 H Plt Count 95 L Gran % Lymph % (Auto) Gran # Lymph # (Auto) 1.4 L D-Dimer VBG Lactic Acid Potassium Carbon Dioxide Anion Gap BUN Creatinine Glucose Uric Acid Calcium Phosphorus Total Bilirubin Direct Bilirubin AST Lactate Dehydrogenase NT-Pro-B Natriuret Pep Total Protein Albumin Vitamin B12 Folate Urine Protein Urine Occult Blood Urine Urobilinogen Ur Leukocyte Esterase Urine RBC Urine WBC Amorphous Crystals Meds: Medications Acetaminophen (Tylenol) 650 mg PO Q6HP PRN PRN Reason: PAIN/FEVER > 101 Hydrocodone Bitart/Acetaminophen ([place] 5/325mg) 1 tab PO Q4HP PRN PRN Reason: Pain Albuterol/Ipratropium (Duoneb) 3 ml NEB Q4HRT [facility] Last Admin: 05/14/17 11:11 Dose: 3 ml Heparin Sodium (Porcine) (Heparin) 5,000 unit SQ Q12 [facility] Last Admin: 05/14/17 09:11 Dose: 5,000 unit Ciprofloxacin (Cipro) 400 mg in 200 mls @ 200 mls/hr IV Q24H [facility] Last Infusion: 05/14/17 10:15 Dose: Infused Levothyroxine Sodium (Synthroid) 25 mcg PO ACB [facility] Last Admin: 05/14/17 09:05 Dose: Not Given Lorazepam (Ativan) 0.5 mg IV Q6HP PRN PRN Reason: ANXIETY/SEDATION Methylprednisolone Sodium Succinate (Solu-Medrol) 62.5 mg IV Q8 [facility] Last Admin: 05/14/17 05:41 Dose: 62.5 mg Naloxone HCl (Narcan) 0.1 mg IV Q2MIN PRN PRN Reason: Opiate Reversal Ondansetron HCl (Zofran) 4 mg IV Q4HP PRN PRN Reason: Nausea And Vomiting Potassium Chloride (Kdur) 20 meq PO BIDCC [facility] Last Admin: 05/14/17 09:05 Dose: Not Given Risperidone (Risperdal) 0.5 mg PO BID [facility] Simvastatin (Zocor) 5 mg PO DAILY [facility] Last Admin: 05/14/17 10:58 Dose: Not Given Medical - PN: A/P - Time Spent With Patient Total time spent is greater than 50% in coordination of care (as documented) at patient's floor/unit and/or counseling patient: - Narrative A/P Narrative: A/P Sepsis Lactic Acidosis- resolved. Congestive heart failure, poor lvef as per last echo. 20% lvef early this year Altered mental status,/ septic Encephalopathy Chronic Kidney Disease thrombocytopenia Reactive Air way disease HTN Coronary Artery disease cholecystitis? Delerium NSVT on tele short run of 3-7 beats Plan Replake K and MG to keep K > 4.0, Mg > 2.0 for NSVT. start on risperidone 0.5mg bid behavorial issues, continue to monitor on telemetery repeat lactate this AM was high, fluids given and will recheck lactate Patients antibiotic changed to cipro given cefepime can cuase encephalophathy in some patient.s Urine cx high growth, but normal hafsa? repeat urine cx IV steroids and duonebs for reactive airway disease, no known history of Copd or asthma, monitor resp status, continue same b12, folate is normal Platlet counts improved today hold bp meds tsh normal, creat is 2.1 High risk of mortality given his multiple comorbid factors and presence of sepsis discussed with , Patient is DNr Diet cardiac OT/ST/ PT eval hep sq for dvt prophylaxis. Medical - PN: Qual - VTE Deep Vein Thrombosis/Pulmonary Embolism Present on Admission: No
[2017-05-14] MEDS: risperiDONE 0.25 MG TABLET PO SCH (21:05)
[2017-05-15] MEDS: IPRATROPIUM/ALBUTEROL 3 ML AMPUL.NEB NEB SCH ×6 (03:07→23:23)
[2017-05-15] MEDS: methylPREDNISolone SOD SUCC 125 MG/2 ML VIAL IV SCH ×4 (06:03→21:46)
[2017-05-15] MEDS: LEVOTHYROXINE 25 MCG TABLET PO SCH (08:34)
[2017-05-15] MEDS: POTASSIUM CHLORIDE 20 MEQ TABLET PO SCH ×2 (08:35→17:16)
[2017-05-15] MEDS ORDERED: 0.9 % SODIUM CHLORIDE 500 ML IV ONE ×4 (09:20→17:57)
[2017-05-15] MEDS ORDERED: VANCOMYCIN PER PHARMACY IV SCH (09:31)
[2017-05-15] MEDS: HEPARIN 5,000 UNIT/ML VIAL SQ SCH ×2 (09:56→20:57)
[2017-05-15] MEDS: CIPROFLOXACIN 400 MG/200 ML BAG IV SCH (09:58)
[2017-05-15] MEDS: PIPERACILLIN SODIUM/TAZOBACTAM 2.25 GM in DEXTROSE 5% IN WATER 50 ML IV SCH ×2 (10:03→17:13)
[2017-05-15] MEDS: VANCOMYCIN 1,000 MG in 0.9 % SODIUM CHLORIDE 250 ML IV SCH (10:40)
[2017-05-15 11:04] LABS: Basophils # (Auto) 0 K/mcL (0.0-0.3); Basophils % (Auto) 0 % (0.0-2.0); Eosinophils # (Auto) 0.1 K/mcL (0.0-0.7); Eosinophils % (Auto) 0.5 % (0.0-7.0); Granulocytes % (Auto) 92.5 % (38.0-78.0); Lymphocytes # (Auto) 0.7 K/mcL (1.5-4.8); Lymphocytes % (Auto) 4.8 % (15.5-49.0); Mean Cell Volume 110.3 fL (80.0-100.0); Mean Corpuscular HGB Conc 32.6 g/dL (31.0-36.0); Monocytes # (Auto) 0.3 K/mcL (0.1-0.9); Monocytes % (Auto) 2.2 % (1.0-12.0); Platelet Count 115 K/mcL (140-440); Red Cell Distribution Width 21.1 % (11.5-14.5)
[2017-05-15 11:05] LABS: ALT/SGPT 29 U/l (0-40); Albumin 3.2 gm/dL (3.2-5.2); Albumin/Globulin Ratio 1.1 (1.0-2.3); Alkaline Phosphatase 68 U/L (39-117); Bilirubin,Direct 1.1 mg/dL (0.0-0.3); Blood Urea Nitrogen 55 mg/dl (8-23); Gamma Glutamyl Transpeptidase 45 U/L (8-61); Magnesium 2.9 mg/dL (1.6-2.5); Uric Acid 13.3 mg/dL (2.5-8.0)
[2017-05-15] MEDS: risperiDONE 0.25 MG TABLET PO SCH ×2 (11:52→19:09)
[2017-05-15] MEDS: SIMVASTATIN 10 MG TABLET PO SCH (11:52)
[2017-05-15] MEDS: 0.9 % SODIUM CHLORIDE 10 ML SYRINGE IV SCH ×2 (13:56→20:57)
--- NOTE | 2017-05-15 15:05 | Cat Scan Report ---
History: Altered mental status Findings: The brain was imaged without contrast at 2.5 mm intervals. There is an ill-defined old infarct involving both cortex and subcortical white matter the left frontal lobe. Is approximately 2 cm in greatest dimension. There is encephalomalacia. There is also an old lacunar infarct with encephalomalacia in the mid body of the left caudate nucleus. It measures approximately 2 x 7 mm. No acute infarct is detected. There is no hemorrhage or mass effect. Moderate generalized cerebral atrophy is present. Associated with this is a ventricular dilatation. No subdural or epidural fluid collection are present. There are patchy areas of decreased attenuation in the casas radiata and centrum semiovale throughout the frontal and parietal lobes bilaterally which may be related to ischemia or degeneration. Comparison with the prior CT done on 02/29/08 shows the infarcts were not present at that time. The atrophy, ventricular dilatation and white matter degeneration have also progressed significantly. 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 Interpreted and Authenticated by: James Cuenca 05/15/17
--- NOTE | 2017-05-15 15:14 | Cat Scan Report ---
CLINICAL INFORMATION: Reason for Exam:sepsis, source. COMPARISON: Chest CT on 05/13/17 TECHNIQUE: The abdomen was imaged without oral or IV contrast, scanning from the diaphragm to the symphysis pubis. Sagittal and coronal reformats were created. FINDINGS: Moderate-sized bilateral layering pleural effusions are present, right larger than left. Associated with this is partial atelectasis in the basilar segments both lower lobes. The heart is moderately enlarged. These findings have remained stable since 05/13/17. Evaluation the abdominal organs without contrast is limited. No abnormality is seen within the liver or spleen. There are no gallstones or thickening of gallbladder wall. The bile ducts are nondilated. There is fatty infiltration the pancreas but there is no evidence of pancreatitis. The adrenals are normal. There is moderate atrophy left kidney and mild atrophy of the right kidney. A nonobstructing 1 mm calyceal stone is present in the lower pole of left kidney. There is no hydronephrosis or inflammation of the perinephric fat. 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 No retroperitoneal hemorrhage is present. There are several diverticula in the mid to distal sigmoid colon. Wall the mid sigmoid colon is mildly thickened but the surrounding fat does not appear inflamed. There is no pelvic abscess or ascites. Higgins catheter is present within the urinary bladder. The bladder is compressed and contains some air. The wall of the bladder is abnormally thickened and irregular. The wall is greater than 1 cm in thickness. There are several calcifications in the prostate. Prostate is relatively small. IMPRESSION: Abnormal thickening of the wall of the urinary bladder. This may be related to chronic bladder outlet obstruction. Cystitis or transitional cell carcinoma are also in the differential. Diverticulosis of the sigmoid colon but without evidence of acute diverticulitis Stable moderate-sized bilateral pleural effusions with bibasilar atelectasis Interpreted and Authenticated by: James Cuenca 05/15/17
[2017-05-15 17:51] LABS: ALT/SGPT 26 U/l (0-40); Albumin 3.1 gm/dL (3.2-5.2); Albumin/Globulin Ratio 1.2 (1.0-2.3); Alkaline Phosphatase 60 U/L (39-117); Bilirubin,Direct 1.2 mg/dL (0.0-0.3); Blood Urea Nitrogen 54 mg/dl (8-23); Gamma Glutamyl Transpeptidase 45 U/L (8-61); Magnesium 2.8 mg/dL (1.6-2.5); Uric Acid 12.6 mg/dL (2.5-8.0)
[2017-05-15] MEDS ORDERED: POTASSIUM CHLORIDE 40 MEQ in DEXTROSE 5% IN WATER 500 ML IV ONE (17:59)
--- NOTE | 2017-05-15 18:04 | Internal Med Progress Note ---
Medical - PN: Subj Patient information: Note initiated : 05/15/17 at 5:58 pm Service Date, if different from initiated Date: [] Patient: Tico Dominguez 86 y/o M admitted on 05/12/17 for SOB, Wheezing/UTI, Sepsis. Chief Complaint: [] Interval history: Mr. Dominguez is a 86 year old Male with multple medical issues presents to the ER with shortness of breath, weakness and possibly some confusion. The patient is a very poor historian and did not provide any meaningful history , his who volunteer in this hospital was at bedside who provided much of the history The patient has multiple medical issues and has been progressively getting worse over the last 2-3 weeks. he has been more weak, tired fatigued and progressively more short of breath and has been wheezing. She has noticed that his effort tolerance has reduced significantly. His condition deteriorated more rapidly over the last 1 week. He fell down and scrapped his knee. The patient notes the only symptom he has is that he is feeling cold. Beyond that he did not complain much. According to the the patient also has had some decline in his mental status. In the ER his temp was on the lower end, labs showed wbc 6.7, ghb 12.2, NA 138, K 4.9, bicarb 20, creat 2.2 (has ckd) glucose 124. D dmier was 7, Lactic acide 3.7, bNP 05213, trop neg Ua suggestive of UTI, muro placed with significant amount of cloudy urine. CXR done which showed mild chf, no pneumonia VQ scan done which was negative for PE. The patient was therefore admitted to the hospital for further management May 13 Patient seen examined overnight patient became more agitated and anxious, trying to get out of bed, aggresive to wards care staff and provider needing restrains to keep him harming self and removing medical devices. He remained calm during the day, He has intermittent wheezing in the day. CT chest done showed CHF K was elevated this AM responded well to IV lasix, repeat came down to normal levels Plan to continue iV abx, duonebs and steroids, IV lasix today May 14 patient seen examined drowsy this am, opened eyes to verbal commands and light touch, but did not follow commands sedative given around 3am patient in restraints to avoid harm to self and care providers. to prevent removal of medical devices. His lactic acid was elevated again today, bolus given recheck given his pseudomonas in past was senstive to cipro, change cefepime to cipro, given some cases of cefepime induced encephalophathy. CT scan chest did not show any e/o bronchial lesion to expalin uppe airway wheeze which is intermittent. May 15 Patient seen examined no acute overnight issues some nsvt on tele patient still in restraints, does not follow commands and is fairly agitated during exam he otherwise sleeps ok CT head is neg, CT abdo pelvis without contrast shows some thickened bladder, but no other sourse of infection he has pooor urine output. but his bp is stable, His Lactate remains elevated Pertinent ROS: unable - Constitutional Vitals: Vital Signs Temp Pulse Resp BP Pulse Ox 97.5 F 65 16 123/83 94 05/15/17 16:06 05/15/17 16:00 05/15/17 16:06 05/15/17 16:06 05/15/17 16:06 Period Temp Pulse Resp BP Sys/Michael Pulse Ox Last 24 Hr 97.1 F-98.0 F 65-75 14-20 113-127/78-88 90-100 Intake and Output 05/15/17 05/15/17 05/15/17 05:59 13:59 21:59 Intake Total 0 / 0 1300 / 1300 Output Total 375 / 375 50 / 50 Balance -375 / -375 1300 / 1300 -50 / -50 Intake & Output: Intake & Output 05/15/17 05/15/17 05/15/17 05:59 13:59 21:59 Intake Total 0 / 0 1300 / 1300 Output Total 375 / 375 50 / 50 Balance -375 / -375 1300 / 1300 -50 / -50 Intake: IV 1300 / 1300 Sodium Chloride 0.9% 500 ml @ 1000 / 1000 Wide Open IV BOLUS ONE Rx#: [id number] Zosyn 2.25 gm In Dextrose 5% in 50 / 50 Water 50 ml @ 100 mls/hr IV Q6H [facility] Rx#:[id number] Vancomycin 1,000 mg In Sodium 250 / 250 Chloride 0.9% 250 ml @ 250 mls/ hr IV Q24H [facility] Rx#:[id number] Oral 0 / 0 Output: Urine Catheter Amount 375 / 375 50 / 50 Other: # of times incontinent of 1 1 Bowels Exam: Constitutional; Afebrile, uncooperative, in restraint to prevent self harm Eyes- No icterus, , No periorbital swelling Ears- Ext ear normal, Neck- Midline trachea, supple Respiratory system: Air Entry equal on both sides, No crackles bibasilar crackles present, no rhonchi. intermittent wheezing noted. CVS- Rate rhythm regular, S1,S2 heard, no gallop, no rub. 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 Medical - PN: Obj Da - Labs CBC & Chem 7: 05/15/17 08:02 05/15/17 16:58 Labs: Abnormal Lab Results 05/15/17 05/15/17 05/15/17 16:58 08:02 08:02 WBC RBC Hgb Hct MCV MCH RDW Plt Count Gran % Lymph % (Auto) Gran # Lymph # (Auto) VBG Lactic Acid 7.1 H* Sodium 146 H 148 H Potassium Chloride 112 H Carbon Dioxide 18 L 19 L Anion Gap 21.0 H BUN 54 H 55 H Creatinine 1.8 H 2.2 H Glucose 233 H 245 H Uric Acid 12.6 H 13.3 H Calcium 8.1 L Phosphorus Magnesium 2.8 H 2.9 H Total Bilirubin 2.5 H 2.5 H Direct Bilirubin 1.2 H 1.1 H AST Lactate Dehydrogenase 348 H 367 H Total Protein 5.7 L Albumin 3.1 L Vitamin B12 Folate 05/15/17 05/14/17 05/14/17 08:02 11:54 07:23 WBC 15.6 H RBC 3.60 L Hgb 13.0 L Hct 39.7 L MCV 110.3 H MCH 36.0 H RDW 21.1 H Plt Count 115 L Gran % 92.5 H Lymph % (Auto) 4.8 L Gran # 14.4 H Lymph # (Auto) 0.7 L VBG Lactic Acid 2.4 H 2.5 H Sodium Potassium Chloride Carbon Dioxide Anion Gap BUN Creatinine Glucose Uric Acid Calcium Phosphorus Magnesium Total Bilirubin Direct Bilirubin AST Lactate Dehydrogenase Total Protein Albumin Vitamin B12 Folate 05/14/17 05/14/17 05/13/17 03:47 03:47 17:04 WBC 11.4 H RBC 3.28 L Hgb 11.9 L Hct 35.8 L MCV 109.1 H MCH 36.4 H RDW 19.9 H Plt Count 99 L Gran % 92.8 H Lymph % (Auto) 5.6 L Gran # 10.6 H Lymph # (Auto) 0.6 L VBG Lactic Acid Sodium Potassium Chloride Carbon Dioxide 17 L 20 L Anion Gap 21.0 H 17.0 H BUN 50 H 46 H Creatinine 2.1 H 2.1 H Glucose 216 H 223 H Uric Acid 12.0 H Calcium 8.1 L Phosphorus 4.8 H Magnesium Total Bilirubin 2.3 H Direct Bilirubin 0.9 H AST 44 H Lactate Dehydrogenase 434 H Total Protein 5.4 L Albumin 2.9 L Vitamin B12 Folate 05/13/17 05/13/17 05/12/17 04:00 04:00 19:35 WBC RBC 3.52 L Hgb 12.7 L Hct 38.5 L MCV 109.3 H MCH 36.2 H RDW 19.3 H Plt Count 86 L Gran % 90.3 H Lymph % (Auto) 8.0 L Gran # Lymph # (Auto) 0.7 L VBG Lactic Acid Sodium Potassium 5.3 H Chloride Carbon Dioxide 21 L Anion Gap BUN 48 H Creatinine 2.1 H Glucose 222 H Uric Acid 11.0 H Calcium Phosphorus Magnesium Total Bilirubin 3.3 H Direct Bilirubin 1.5 H AST Lactate Dehydrogenase 333 H Total Protein Albumin Vitamin B12 Folate > 20.0 H 05/12/17 19:35 WBC RBC Hgb Hct MCV MCH RDW Plt Count Gran % Lymph % (Auto) Gran # Lymph # (Auto) VBG Lactic Acid Sodium Potassium Chloride Carbon Dioxide Anion Gap BUN Creatinine Glucose Uric Acid Calcium Phosphorus Magnesium Total Bilirubin Direct Bilirubin AST Lactate Dehydrogenase Total Protein Albumin Vitamin B12 1897 H Folate Meds: Medications Acetaminophen (Tylenol) 650 mg PO Q6HP PRN PRN Reason: PAIN/FEVER > 101 Hydrocodone Bitart/Acetaminophen (Cross 5/325mg) 1 tab PO Q4HP PRN PRN Reason: Pain Albuterol/Ipratropium (Duoneb) 3 ml NEB Q4HRT [facility] Last Admin: 05/15/17 15:28 Dose: 3 ml Heparin Sodium (Porcine) (Heparin) 5,000 unit SQ Q12 [facility] Last Admin: 05/15/17 09:56 Dose: 5,000 unit Piperacillin Sod/Tazobactam (Sod 2.25 gm/ Dextrose) 50 mls @ 100 mls/hr IV Q6H [facility] Last Admin: 05/15/17 17:13 Dose: 100 mls/hr Vancomycin HCl 1,000 mg/ (Sodium Chloride) 250 mls @ 250 mls/hr IV Q24H [facility] Last Infusion: 05/15/17 12:00 Dose: Infused Sodium Chloride (Sodium Chloride 0.9%) 500 mls @ 0 mls/hr IV BOLUS ONE PRN Reason: Wide Open Stop: 05/15/17 17:58 Levothyroxine Sodium (Synthroid) 25 mcg PO ACB [facility] Last Admin: 05/15/17 08:34 Dose: Not Given Lorazepam (Ativan) 0.5 mg IV Q6HP PRN PRN Reason: ANXIETY/SEDATION Last Admin: 05/15/17 14:08 Dose: 0.5 mg Methylprednisolone Sodium Succinate (Solu-Medrol) 62.5 mg IV Q8 [facility] Last Admin: 05/15/17 13:54 Dose: 62.5 mg Naloxone HCl (Narcan) 0.1 mg IV Q2MIN PRN PRN Reason: Opiate Reversal Ondansetron HCl (Zofran) 4 mg IV Q4HP PRN PRN Reason: Nausea And Vomiting Potassium Chloride (Kdur) 20 meq PO BIDCC [facility] Last Admin: 05/15/17 17:16 Dose: Not Given Risperidone (Risperdal) 0.5 mg PO BID [facility] Last Admin: 05/15/17 11:52 Dose: Not Given Simvastatin (Zocor) 5 mg PO DAILY [facility] Last Admin: 05/15/17 11:52 Dose: Not Given Sodium Chloride (Saline Flush) 10 ml IV Q8 [facility] Last Admin: 05/15/17 13:56 Dose: 10 ml Vancomycin HCl (Vancomycin Per Pharmacy) 1 order IV UD [facility] Medical - PN: A/P - Time Spent With Patient Total time spent is greater than 50% in coordination of care (as documented) at patient's floor/unit and/or counseling patient: - Narrative A/P Narrative: A/P Sepsis Lactic Acidosis- Congestive heart failure, poor lvef as per last echo. 20% lvef early this year Altered mental status,/ septic Encephalopathy Chronic Kidney Disease thrombocytopenia Reactive Air way disease HTN Coronary Artery disease cholecystitis? Delerium NSVT on tele short run of 3-7 beats Plan worsenint wbc count, replace K< mg is ok continue on risperidone 0.5mg bid behavorial issues, continue to monitor on telemetry repeat lactate high, continue fluid resuscitation gently Patients antibiotic changed to vanco and zosyn given worsening wbc Urine cx high growth, but normal hafsa? repeat urine cx IV steroids and duonebs for reactive airway disease, no known history of Copd or asthma, monitor resp status, continue same b12, folate is normal Platlet counts stable. hold bp meds tsh normal, creat is 2.1 High risk of mortality given his multiple comorbid factors and presence of sepsis discussed with , Patient is DNr Diet cardiac OT/ST/ PT eval hep sq for dvt prophylaxis. Medical - PN: Qual - VTE Deep Vein Thrombosis/Pulmonary Embolism Present on Admission: No
[2017-05-15] MEDS ORDERED: POTASSIUM CHLORIDE 20 MEQ/10 ML VIAL IV ONE (19:26)
[2017-05-16] MEDS: PIPERACILLIN SODIUM/TAZOBACTAM 2.25 GM in DEXTROSE 5% IN WATER 50 ML IV SCH ×5 (00:17→23:50)
[2017-05-16] MEDS: 0.9 % SODIUM CHLORIDE 1,000 ML IV SCH ×2 (00:18→14:40)
[2017-05-16] MEDS: IPRATROPIUM/ALBUTEROL 3 ML AMPUL.NEB NEB SCH ×6 (02:54→23:10)
[2017-05-16 04:59] LABS: Basophils # (Auto) 0 K/mcL (0.0-0.3); Basophils % (Auto) 0 % (0.0-2.0); Eosinophils # (Auto) 0.1 K/mcL (0.0-0.7); Eosinophils % (Auto) 0.5 % (0.0-7.0); Granulocytes % (Auto) 93.6 % (38.0-78.0); Lymphocytes # (Auto) 0.5 K/mcL (1.5-4.8); Lymphocytes % (Auto) 3.4 % (15.5-49.0); Mean Cell Volume 109.1 fL (80.0-100.0); Mean Corpuscular HGB Conc 32.9 g/dL (31.0-36.0); Mean Corpuscular Hemoglobin 35.9 pg (26.0-34.0); Monocytes # (Auto) 0.4 K/mcL (0.1-0.9); Monocytes % (Auto) 2.5 % (1.0-12.0); Platelet Count 95 K/mcL (140-440); RBC 3.56 M/mcL (4.50-5.90); Red Cell Distribution Width 21.2 % (11.5-14.5)
[2017-05-16 05:17] LABS: ALT/SGPT 28 U/l (0-40); Albumin 3.3 gm/dL (3.2-5.2); Albumin/Globulin Ratio 1.3 (1.0-2.3); Alkaline Phosphatase 59 U/L (39-117); Bilirubin,Direct 1.5 mg/dL (0.0-0.3); Blood Urea Nitrogen 54 mg/dl (8-23); Gamma Glutamyl Transpeptidase 41 U/L (8-61); Magnesium 2.8 mg/dL (1.6-2.5)
[2017-05-16] MEDS: methylPREDNISolone SOD SUCC 125 MG/2 ML VIAL IV SCH ×3 (05:32→21:30)
[2017-05-16] MEDS: 0.9 % SODIUM CHLORIDE 10 ML SYRINGE IV SCH ×3 (05:33→21:30)
[2017-05-16] MEDS: SIMVASTATIN 10 MG TABLET PO SCH (09:13)
[2017-05-16] MEDS: risperiDONE 0.25 MG TABLET PO SCH (09:13)
[2017-05-16] MEDS: LEVOTHYROXINE 25 MCG TABLET PO SCH (09:13)
[2017-05-16] MEDS: POTASSIUM CHLORIDE 20 MEQ TABLET PO SCH ×2 (09:13→17:25)
[2017-05-16] MEDS: HEPARIN 5,000 UNIT/ML VIAL SQ SCH ×2 (09:15→21:30)
[2017-05-16] MEDS ORDERED: 0.9 % SODIUM CHLORIDE 500 ML IV ONE (10:02)
[2017-05-16] MEDS: VANCOMYCIN 1,000 MG in 0.9 % SODIUM CHLORIDE 250 ML IV SCH (11:07)
--- NOTE | 2017-05-16 14:14 | Internal Med Progress Note ---
Medical - PN: Subj Patient information: Note initiated : 05/16/17 at 2:12 pm Service Date, if different from initiated Date: [] Patient: Tico Dominguez 86 y/o M admitted on 05/12/17 for SOB, Wheezing/UTI, Sepsis. Chief Complaint: [] Interval history: Mr. Dominguez is a 86 year old Male with multple medical issues presents to the ER with shortness of breath, weakness and possibly some confusion. The patient is a very poor historian and did not provide any meaningful history , his who volunteer in this hospital was at bedside who provided much of the history The patient has multiple medical issues and has been progressively getting worse over the last 2-3 weeks. he has been more weak, tired fatigued and progressively more short of breath and has been wheezing. She has noticed that his effort tolerance has reduced significantly. His condition deteriorated more rapidly over the last 1 week. He fell down and scrapped his knee. The patient notes the only symptom he has is that he is feeling cold. Beyond that he did not complain much. According to the the patient also has had some decline in his mental status. In the ER his temp was on the lower end, labs showed wbc 6.7, ghb 12.2, NA 138, K 4.9, bicarb 20, creat 2.2 (has ckd) glucose 124. D dmier was 7, Lactic acide 3.7, bNP 91850, trop neg Ua suggestive of UTI, muro placed with significant amount of cloudy urine. CXR done which showed mild chf, no pneumonia VQ scan done which was negative for PE. The patient was therefore admitted to the hospital for further management May 13 Patient seen examined overnight patient became more agitated and anxious, trying to get out of bed, aggresive to wards care staff and provider needing restrains to keep him harming self and removing medical devices. He remained calm during the day, He has intermittent wheezing in the day. CT chest done showed CHF K was elevated this AM responded well to IV lasix, repeat came down to normal levels Plan to continue iV abx, duonebs and steroids, IV lasix today May 14 patient seen examined drowsy this am, opened eyes to verbal commands and light touch, but did not follow commands sedative given around 3am patient in restraints to avoid harm to self and care providers. to prevent removal of medical devices. His lactic acid was elevated again today, bolus given recheck given his pseudomonas in past was senstive to cipro, change cefepime to cipro, given some cases of cefepime induced encephalophathy. CT scan chest did not show any e/o bronchial lesion to expalin uppe airway wheeze which is intermittent. May 15 Patient seen examined no acute overnight issues some nsvt on tele patient still in restraints, does not follow commands and is fairly agitated during exam he otherwise sleeps ok CT head is neg, CT abdo pelvis without contrast shows some thickened bladder, but no other sourse of infection he has pooor urine output. but his bp is stable, His Lactate remains elevated May 16 Patient seen examined no acute issues overnight, still confused remains in restraints, intermittent tachypenai followed by periods of normal breathing. Lactate remains elevated patient was at bedside, educated and updated on patients critical condition , she is thankful and seems to understand poor prognosis. He is on vanco and zosyn, for now. monitor closely - Constitutional Vitals: Vital Signs Temp Pulse Resp BP Pulse Ox 98.0 F 68 20 123/89 94 05/16/17 12:03 05/16/17 12:03 05/16/17 12:03 05/16/17 12:03 05/16/17 12:03 Period Temp Pulse Resp BP Sys/Michael Pulse Ox Last 24 Hr 97.3 F-98.9 F 60-72 14-25 123-141/79-89 90-100 Intake and Output 05/16/17 05/16/17 05/16/17 05:59 13:59 21:59 Intake Total 570 / 570 550 / 550 Output Total 325 / 325 Balance 245 / 245 550 / 550 Intake & Output: Intake & Output 05/16/17 05/16/17 05/16/17 05:59 13:59 21:59 Intake Total 570 / 570 550 / 550 Output Total 325 / 325 Balance 245 / 245 550 / 550 Intake: IV 570 / 570 550 / 550 Sodium Chloride 0.9% 500 ml @ 500 / 500 Wide Open IV BOLUS ONE Rx#: [id number] Zosyn 2.25 gm In Dextrose 5% in 50 / 50 50 / 50 Water 50 ml @ 100 mls/hr IV Q6H [facility] Rx#:[id number] Output: Urine Catheter Amount 325 / 325 Exam: Constitutional; Afebrile, drowsy, non cooperative. Eyes- No icterus, , No periorbital swelling Ears- Ext ear normal, Neck- Midline trachea, supple Respiratory system: Air Entry equal on both sides, No crackles or wheezing, no rhonchi. (has intermittent upper airway wheezing) CVS- Rate rhythm regular, S1,S2 heard, no gallop, no rub. 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 Pt still in 4 point restraints to prevent self harm and prevent removal of medical devices Medical - PN: Obj Da - Labs CBC & Chem 7: 05/16/17 03:57 05/16/17 03:57 Labs: Abnormal Lab Results 05/16/17 05/16/17 05/15/17 03:57 03:57 16:58 WBC 14.1 H RBC 3.56 L Hgb 12.8 L Hct 38.8 L MCV 109.1 H MCH 35.9 H RDW 21.2 H Plt Count 95 L Gran % 93.6 H Lymph % (Auto) 3.4 L Gran # 13.2 H Lymph # (Auto) 0.5 L VBG Lactic Acid Sodium 147 H 146 H Chloride 112 H 112 H Carbon Dioxide 18 L 18 L Anion Gap 17.0 H BUN 54 H 54 H Creatinine 1.9 H 1.8 H Glucose 271 H 233 H Uric Acid 12.0 H 12.6 H Calcium 8.2 L 8.1 L Phosphorus Magnesium 2.8 H 2.8 H Total Bilirubin 2.8 H 2.5 H Direct Bilirubin 1.5 H 1.2 H AST Lactate Dehydrogenase 381 H 348 H Total Protein 5.8 L 5.7 L Albumin 3.1 L 05/15/17 05/15/17 05/15/17 08:02 08:02 08:02 WBC 15.6 H RBC 3.60 L Hgb 13.0 L Hct 39.7 L MCV 110.3 H MCH 36.0 H RDW 21.1 H Plt Count 115 L Gran % 92.5 H Lymph % (Auto) 4.8 L Gran # 14.4 H Lymph # (Auto) 0.7 L VBG Lactic Acid 7.1 H* Sodium 148 H Chloride Carbon Dioxide 19 L Anion Gap 21.0 H BUN 55 H Creatinine 2.2 H Glucose 245 H Uric Acid 13.3 H Calcium Phosphorus Magnesium 2.9 H Total Bilirubin 2.5 H Direct Bilirubin 1.1 H AST Lactate Dehydrogenase 367 H Total Protein Albumin 05/14/17 05/14/17 05/14/17 11:54 07:23 03:47 WBC RBC Hgb Hct MCV MCH RDW Plt Count Gran % Lymph % (Auto) Gran # Lymph # (Auto) VBG Lactic Acid 2.4 H 2.5 H Sodium Chloride Carbon Dioxide 17 L Anion Gap 21.0 H BUN 50 H Creatinine 2.1 H Glucose 216 H Uric Acid 12.0 H Calcium 8.1 L Phosphorus 4.8 H Magnesium Total Bilirubin 2.3 H Direct Bilirubin 0.9 H AST 44 H Lactate Dehydrogenase 434 H Total Protein 5.4 L Albumin 2.9 L 05/14/17 05/13/17 03:47 17:04 WBC 11.4 H RBC 3.28 L Hgb 11.9 L Hct 35.8 L MCV 109.1 H MCH 36.4 H RDW 19.9 H Plt Count 99 L Gran % 92.8 H Lymph % (Auto) 5.6 L Gran # 10.6 H Lymph # (Auto) 0.6 L VBG Lactic Acid Sodium Chloride Carbon Dioxide 20 L Anion Gap 17.0 H BUN 46 H Creatinine 2.1 H Glucose 223 H Uric Acid Calcium Phosphorus Magnesium Total Bilirubin Direct Bilirubin AST Lactate Dehydrogenase Total Protein Albumin Meds: Medications Acetaminophen (Tylenol) 650 mg PO Q6HP PRN PRN Reason: PAIN/FEVER > 101 Hydrocodone Bitart/Acetaminophen ([place] 5/325mg) 1 tab PO Q4HP PRN PRN Reason: Pain Albuterol/Ipratropium (Duoneb) 3 ml NEB Q4HRT [facility] Last Admin: 05/16/17 11:57 Dose: 3 ml Heparin Sodium (Porcine) (Heparin) 5,000 unit SQ Q12 [facility] Last Admin: 05/16/17 09:15 Dose: 5,000 unit Piperacillin Sod/Tazobactam (Sod 2.25 gm/ Dextrose) 50 mls @ 100 mls/hr IV Q6H [facility] Last Admin: 05/16/17 13:13 Dose: 100 mls/hr Vancomycin HCl 1,000 mg/ (Sodium Chloride) 250 mls @ 250 mls/hr IV Q24H [facility] Last Admin: 05/16/17 11:07 Dose: 250 mls/hr Sodium Chloride (Sodium Chloride 0.9%) 1,000 mls @ 75 mls/hr IV .[id number] [facility] Last Admin: 05/16/17 00:18 Dose: 75 mls/hr Levothyroxine Sodium (Synthroid) 25 mcg PO ACB [facility] Last Admin: 05/16/17 09:13 Dose: Not Given Lorazepam (Ativan) 0.5 mg IV Q6HP PRN PRN Reason: ANXIETY/SEDATION Last Admin: 05/15/17 14:08 Dose: 0.5 mg Methylprednisolone Sodium Succinate (Solu-Medrol) 62.5 mg IV Q8 [facility] Last Admin: 05/16/17 05:32 Dose: 62.5 mg Naloxone HCl (Narcan) 0.1 mg IV Q2MIN PRN PRN Reason: Opiate Reversal Ondansetron HCl (Zofran) 4 mg IV Q4HP PRN PRN Reason: Nausea And Vomiting Potassium Chloride (Kdur) 20 meq PO BIDCC [facility] Last Admin: 05/16/17 09:13 Dose: Not Given Risperidone (Risperdal) 0.5 mg PO BID [facility] Last Admin: 05/16/17 09:13 Dose: Not Given Simvastatin (Zocor) 5 mg PO DAILY [facility] Last Admin: 05/16/17 09:13 Dose: Not Given Sodium Chloride (Saline Flush) 10 ml IV Q8 [facility] Last Admin: 05/16/17 05:33 Dose: 10 ml Vancomycin HCl (Vancomycin Per Pharmacy) 1 order IV UD [facility] Medical - PN: A/P - Time Spent With Patient Total time spent is greater than 50% in coordination of care (as documented) at patient's floor/unit and/or counseling patient: - Narrative A/P Narrative: A/P Sepsis Lactic Acidosis- Congestive heart failure, poor lvef as per last echo. 20% lvef early this year Altered mental status,/ septic Encephalopathy Chronic Kidney Disease thrombocytopenia Reactive Air way disease HTN Coronary Artery disease cholecystitis? Delerium NSVT on tele short run of 3-7 beats Plan wbc slightly better today, lactate is still elevated another [address] PICC line today plan of care reviewed iwth patients . all questions answered continue on vanco and zosy await repeat urine xulture. IV steroids and duonebs for intermittent wheezing, no tumor or massess noted on exam platlets stable bp stable, creat is stable replace K< mg is ok continue on risperidone 0.5mg bid behavorial issues, continue to monitor on telemetry repeat lactate high, continue fluid resuscitation gently Patients antibiotic changed to vanco and zosyn given worsening wbc Urine cx high growth, but normal hafsa? repeat urine cx IV steroids and duonebs for reactive airway disease, no known history of Copd or asthma, monitor resp status, continue same b12, folate is normal Platlet counts stable. creat is 2.1 High risk of mortality given his multiple comorbid factors and presence of sepsis discussed with , Patient is DNr Diet cardiac OT/ST/ PT eval once mental status improves hep sq for dvt prophylaxis. Medical - PN: Qual - VTE Deep Vein Thrombosis/Pulmonary Embolism Present on Admission: No
[2017-05-16] MEDS ORDERED: HYDROmorphone 2 MG/ML SYRINGE IV ONE (16:22)
[2017-05-16] MEDS ORDERED: ACETAMINOPHEN 1,000 MG/100 ML BOTTLE IV ONE (16:49)
[2017-05-16] MEDS ORDERED: FUROSEMIDE 100 MG/10 ML VIAL IV ONE (16:53)
--- NOTE | 2017-05-16 17:21 | XRay Report ---
HISTORY: Reason for Exam:shortness of breath FINDINGS: The heart is moderately enlarged. There are widespread alveolar opacities throughout both lungs due to pulmonary edema. There is also a small right-sided pleural effusion. The congestive heart failure and pulmonary edema have become worse since 05/12/17. IMPRESSION: Pulmonary edema Interpreted and Authenticated by: James Cuenca 05/16/17
[2017-05-16] MEDS ORDERED: POTASSIUM CHLORIDE 20 MEQ in DEXTROSE 5% IN WATER 250 ML IV ONE (18:39)
[2017-05-16] MEDS ORDERED: BUMETANIDE 0.25 MG/ML VIAL IV ONE (18:40)
[2017-05-16] MEDS ORDERED: POTASSIUM CHLORIDE 20 MEQ/10 ML VIAL IV ONE (19:02)
[2017-05-17] MEDS: IPRATROPIUM/ALBUTEROL 3 ML AMPUL.NEB NEB SCH ×6 (02:54→23:36)
[2017-05-17 05:21] LABS: ALT/SGPT 32 U/l (0-40); Albumin 3.3 gm/dL (3.2-5.2); Albumin/Globulin Ratio 1.3 (1.0-2.3); Alkaline Phosphatase 59 U/L (39-117); Bilirubin,Direct 2.1 mg/dL (0.0-0.3); Blood Urea Nitrogen 59 mg/dl (8-23); Gamma Glutamyl Transpeptidase 48 U/L (8-61); Magnesium 2.9 mg/dL (1.6-2.5); Uric Acid 12.1 mg/dL (2.5-8.0)
[2017-05-17] MEDS: 0.9 % SODIUM CHLORIDE 10 ML SYRINGE IV SCH ×3 (05:49→21:32)
[2017-05-17] MEDS: methylPREDNISolone SOD SUCC 125 MG/2 ML VIAL IV SCH ×3 (05:49→21:31)
[2017-05-17] MEDS: PIPERACILLIN SODIUM/TAZOBACTAM 2.25 GM in DEXTROSE 5% IN WATER 50 ML IV SCH ×3 (05:49→18:10)
[2017-05-17] MEDS ORDERED: BUMETANIDE 0.25 MG/ML VIAL IV ONE (06:35)
[2017-05-17] MEDS ORDERED: CHLOROTHIAZIDE SODIUM 500 MG VIAL IV ONE (06:35)
[2017-05-17 07:10] LABS: Basophils # (Auto) 0 K/mcL (0.0-0.3); Basophils % (Auto) 0 % (0.0-2.0); Eosinophils # (Auto) 0 K/mcL (0.0-0.7); Eosinophils % (Auto) 0 % (0.0-7.0); Granulocytes % (Auto) 93.2 % (38.0-78.0); Lymphocytes # (Auto) 0.5 K/mcL (1.5-4.8); Lymphocytes % (Auto) 4.6 % (15.5-49.0); Mean Cell Volume 109.6 fL (80.0-100.0); Mean Corpuscular HGB Conc 33.9 g/dL (31.0-36.0); Mean Corpuscular Hemoglobin 37.1 pg (26.0-34.0); Monocytes # (Auto) 0.3 K/mcL (0.1-0.9); Monocytes % (Auto) 2.2 % (1.0-12.0); Platelet Count 97 K/mcL (140-440); RBC 3.62 M/mcL (4.50-5.90); Red Cell Distribution Width 20.4 % (11.5-14.5)
[2017-05-17] MEDS: LEVOTHYROXINE 25 MCG TABLET PO SCH (08:34)
[2017-05-17] MEDS: POTASSIUM CHLORIDE 20 MEQ TABLET PO SCH ×2 (08:34→16:09)
[2017-05-17] MEDS: SIMVASTATIN 10 MG TABLET PO SCH (09:56)
[2017-05-17] MEDS: HEPARIN 5,000 UNIT/ML VIAL SQ SCH ×2 (10:01→21:31)
[2017-05-17] MEDS: VANCOMYCIN 1,000 MG in 0.9 % SODIUM CHLORIDE 250 ML IV SCH (11:56)
[2017-05-17] MEDS ORDERED: FUROSEMIDE 100 MG/10 ML VIAL IV ONE (13:54)
[2017-05-17] MEDS ORDERED: FUROSEMIDE 250 MG in 0.9 % SODIUM CHLORIDE 225 ML IV SCH (14:00)
[2017-05-17 15:04] LABS: Blood Urea Nitrogen 66 mg/dl (8-23)
[2017-05-17] MEDS ORDERED: DEXTROSE 50% 50 ML VIAL IV PRN (15:37)
--- NOTE | 2017-05-17 15:51 | Internal Med Progress Note ---
Medical - PN: Subj Patient information: Note initiated : 05/17/17 at 3:45 pm Service Date, if different from initiated Date: [] Patient: Tico Dominguez 86 y/o M admitted on 05/12/17 for SOB, Wheezing/UTI, Sepsis. Chief Complaint: [] Interval history: Mr. Dominguez is a 86 year old Male with multple medical issues presents to the ER with shortness of breath, weakness and possibly some confusion. The patient is a very poor historian and did not provide any meaningful history , his who volunteer in this hospital was at bedside who provided much of the history The patient has multiple medical issues and has been progressively getting worse over the last 2-3 weeks. he has been more weak, tired fatigued and progressively more short of breath and has been wheezing. She has noticed that his effort tolerance has reduced significantly. His condition deteriorated more rapidly over the last 1 week. He fell down and scrapped his knee. The patient notes the only symptom he has is that he is feeling cold. Beyond that he did not complain much. According to the the patient also has had some decline in his mental status. In the ER his temp was on the lower end, labs showed wbc 6.7, ghb 12.2, NA 138, K 4.9, bicarb 20, creat 2.2 (has ckd) glucose 124. D dmier was 7, Lactic acide 3.7, bNP 93202, trop neg Ua suggestive of UTI, muro placed with significant amount of cloudy urine. CXR done which showed mild chf, no pneumonia VQ scan done which was negative for PE. The patient was therefore admitted to the hospital for further management May 13 Patient seen examined overnight patient became more agitated and anxious, trying to get out of bed, aggresive to wards care staff and provider needing restrains to keep him harming self and removing medical devices. He remained calm during the day, He has intermittent wheezing in the day. CT chest done showed CHF K was elevated this AM responded well to IV lasix, repeat came down to normal levels Plan to continue iV abx, duonebs and steroids, IV lasix today May 14 patient seen examined drowsy this am, opened eyes to verbal commands and light touch, but did not follow commands sedative given around 3am patient in restraints to avoid harm to self and care providers. to prevent removal of medical devices. His lactic acid was elevated again today, bolus given recheck given his pseudomonas in past was senstive to cipro, change cefepime to cipro, given some cases of cefepime induced encephalophathy. CT scan chest did not show any e/o bronchial lesion to expalin uppe airway wheeze which is intermittent. May 15 Patient seen examined no acute overnight issues some nsvt on tele patient still in restraints, does not follow commands and is fairly agitated during exam he otherwise sleeps ok CT head is neg, CT abdo pelvis without contrast shows some thickened bladder, but no other sourse of infection he has pooor urine output. but his bp is stable, His Lactate remains elevated May 16 Patient seen examined no acute issues overnight, still confused remains in restraints, intermittent tachypenai followed by periods of normal breathing. Lactate remains elevated patient was at bedside, educated and updated on patients critical condition , she is thankful and seems to understand poor prognosis. He is on vanco and zosyn, for now. monitor closely May 17 patient seen examined, no acute overnight issues, did respond somewhat to the diuretics started last night placed on bipap this AM, given that his condition worsened. his breathing is chyene shanks type pattern CT head is neg but difficult to r/o occult stroke cxr shows pulmonary edema nad chf can also present in this fashion, therefore patient is being aggressively diuresed At this point given stability on bp I think that the lactic acidosis is more from chf, resp issues than hypoperfusion of sepsis. hold off on any more fluids Again discussed with the that he may not make it through this admission given his resp and cardiac issue. she is aware and notes she is preparing her family for bad news. Pertinent ROS: unable - Constitutional Vitals: Vital Signs Temp Pulse Resp BP Pulse Ox 98.1 F 65 14 124/92 100 05/17/17 12:01 05/17/17 15:01 05/17/17 15:01 05/17/17 12:01 05/17/17 15:01 Period Temp Pulse Resp BP Sys/Michael Pulse Ox Last 24 Hr 97.0 F-98.9 F 65-80 14-26 108-164/64-98 89-100 Intake and Output 05/17/17 05/17/17 05/17/17 05:59 13:59 21:59 Intake Total 50 / 50 300 / 300 50 / 50 Output Total 650 / 650 300 / 300 1550 / 1550 Balance -600 / -600 0 / 0 -1500 / -1500 Intake & Output: Intake & Output 05/17/17 05/17/17 05/17/17 05:59 13:59 21:59 Intake Total 50 / 50 300 / 300 50 / 50 Output Total 650 / 650 300 / 300 1550 / 1550 Balance -600 / -600 0 / 0 -1500 / -1500 Intake: IV 50 / 50 300 / 300 50 / 50 Zosyn 2.25 gm In Dextrose 5% in 50 / 50 50 / 50 50 / 50 Water 50 ml @ 100 mls/hr IV Q6H [facility] Rx#:[id number] Vancomycin 1,000 mg In Sodium 250 / 250 Chloride 0.9% 250 ml @ 250 mls/ hr IV Q24H [facility] Rx#:[id number] Output: Urine Catheter Amount 650 / 650 300 / 300 1550 / 1550 Exam: Constitutional; Afebrile, non coopperatke mild distress, kussmal breathing pattern. Eyes- No icterus, , No periorbital swelling Ears- Ext ear normal, Neck- Midline trachea, supple Respiratory system: Air Entry equal on both sides, No crackles or wheezing, no rhonchi. (intermittent wheezing noted) CVS- Rate rhythm regular, S1,S2 heard, no gallop, no rub. 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 Medical - PN: Obj Da - Labs CBC & Chem 7: 05/17/17 06:15 05/17/17 14:12 Labs: Abnormal Lab Results 05/17/17 05/17/17 05/17/17 14:12 06:15 03:57 WBC 12.0 H RBC 3.62 L Hgb 13.4 L Hct 39.7 L MCV 109.6 H MCH 37.1 H RDW 20.4 H Plt Count 97 L Gran % 93.2 H Lymph % (Auto) 4.6 L Gran # 11.2 H Lymph # (Auto) 0.5 L VBG Lactic Acid Sodium 152 H 153 H Chloride 114 H 116 H Carbon Dioxide 19 L 16 L Anion Gap 19.0 H 21.0 H BUN 66 H 59 H Creatinine 2.4 H 2.0 H Glucose 355 H 301 H Uric Acid 12.1 H Calcium 8.2 L 8.1 L Magnesium 2.9 H Total Bilirubin 3.5 H Direct Bilirubin 2.1 H AST 47 H Lactate Dehydrogenase 516 H NT-Pro-B Natriuret Pep 71907.0 H Total Protein 5.8 L Albumin 05/16/17 05/16/17 05/15/17 03:57 03:57 16:58 WBC 14.1 H RBC 3.56 L Hgb 12.8 L Hct 38.8 L MCV 109.1 H MCH 35.9 H RDW 21.2 H Plt Count 95 L Gran % 93.6 H Lymph % (Auto) 3.4 L Gran # 13.2 H Lymph # (Auto) 0.5 L VBG Lactic Acid Sodium 147 H 146 H Chloride 112 H 112 H Carbon Dioxide 18 L 18 L Anion Gap 17.0 H BUN 54 H 54 H Creatinine 1.9 H 1.8 H Glucose 271 H 233 H Uric Acid 12.0 H 12.6 H Calcium 8.2 L 8.1 L Magnesium 2.8 H 2.8 H Total Bilirubin 2.8 H 2.5 H Direct Bilirubin 1.5 H 1.2 H AST Lactate Dehydrogenase 381 H 348 H NT-Pro-B Natriuret Pep Total Protein 5.8 L 5.7 L Albumin 3.1 L 05/15/17 05/15/17 05/15/17 08:02 08:02 08:02 WBC 15.6 H RBC 3.60 L Hgb 13.0 L Hct 39.7 L MCV 110.3 H MCH 36.0 H RDW 21.1 H Plt Count 115 L Gran % 92.5 H Lymph % (Auto) 4.8 L Gran # 14.4 H Lymph # (Auto) 0.7 L VBG Lactic Acid 7.1 H* Sodium 148 H Chloride Carbon Dioxide 19 L Anion Gap 21.0 H BUN 55 H Creatinine 2.2 H Glucose 245 H Uric Acid 13.3 H Calcium Magnesium 2.9 H Total Bilirubin 2.5 H Direct Bilirubin 1.1 H AST Lactate Dehydrogenase 367 H NT-Pro-B Natriuret Pep Total Protein Albumin Meds: Medications Acetaminophen (Tylenol) 650 mg PO Q6HP PRN PRN Reason: PAIN/FEVER > 101 Hydrocodone Bitart/Acetaminophen ([place] 5/325mg) 1 tab PO Q4HP PRN PRN Reason: Pain Albuterol/Ipratropium (Duoneb) 3 ml NEB Q4HRT [facility] Last Admin: 05/17/17 14:59 Dose: 3 ml Dextrose (Dextrose 50%) 0 ml IV UD PRN PRN Reason: Hypoglycemia Diagnostic Test (Pha) (Accu-Chek) 1 each FS Q6 [facility] Heparin Sodium (Porcine) (Heparin) 5,000 unit SQ Q12 [facility] Last Admin: 05/17/17 10:01 Dose: 5,000 unit Piperacillin Sod/Tazobactam (Sod 2.25 gm/ Dextrose) 50 mls @ 100 mls/hr IV Q6H [facility] Last Infusion: 05/17/17 14:00 Dose: Infused Vancomycin HCl 1,000 mg/ (Sodium Chloride) 250 mls @ 250 mls/hr IV Q24H [facility] Last Infusion: 05/17/17 13:11 Dose: Infused Furosemide 250 mg/ Sodium (Chloride) 250 mls @ 10 mls/hr IV Q24H [facility] PRN Reason: 10 MG/HR Last Admin: 05/17/17 15:07 Dose: 10 mg/hr, 10 mls/hr Insulin Glargine (Lantus) 10 unit SQ DAILY [facility] Insulin Human Lispro (Humalog) 0 unit SQ Q6 [facility] PRN Reason: Protocol Levothyroxine Sodium (Synthroid) 25 mcg PO ACB [facility] Last Admin: 05/17/17 08:34 Dose: Not Given Lorazepam (Ativan) 0.5 mg IV Q6HP PRN PRN Reason: ANXIETY/SEDATION Last Admin: 05/15/17 14:08 Dose: 0.5 mg Methylprednisolone Sodium Succinate (Solu-Medrol) 62.5 mg IV Q8 [facility] Last Admin: 05/17/17 14:55 Dose: 62.5 mg Naloxone HCl (Narcan) 0.1 mg IV Q2MIN PRN PRN Reason: Opiate Reversal Ondansetron HCl (Zofran) 4 mg IV Q4HP PRN PRN Reason: Nausea And Vomiting Potassium Chloride (Kdur) 20 meq PO BIDCC [facility] Last Admin: 05/17/17 08:34 Dose: Not Given Simvastatin (Zocor) 5 mg PO DAILY [facility] Last Admin: 05/17/17 09:56 Dose: Not Given Sodium Chloride (Saline Flush) 10 ml IV Q8 [facility] Last Admin: 05/17/17 14:56 Dose: 10 ml Vancomycin HCl (Vancomycin Per Pharmacy) 1 order IV [facility] [place] [facility] [place] Medical - PN: A/P - Time Spent With Patient Total time spent is greater than 50% in coordination of care (as documented) at patient's floor/unit and/or counseling patient: - Narrative A/P Narrative: A/P Sepsis Lactic Acidosis- Congestive heart failure, poor lvef as per last echo. 20% lvef early this year Altered mental status,/ septic Encephalopathy/ ? occult brainstem cva? Chronic Kidney Disease acute on chr renal failiure. thrombocytopenia Reactive Air way disease HTN Coronary Artery disease cholecystitis? Delirium NSVT on tele short run of 3-7 beats Hypernatremia. Acute respiratory failure, Plan WBC trending down started on bipap to prevent acute resp decompensatino IV lasix and IV lasix drip ordered. Patient seems to be responding. Chlorothiazie given this AM which seems to have helped improve urine output. will repeat another dose tomorrow if needed. Picc held as patient is non cooperative at this time. continue on vanco and zosy await repeat urine culture. 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 platlets stable bp stable, renal failure worsening with use of diuretics. repeat X ray chest in AM. INsulin lantus 10 daily and sliding scale for hyperglycemia. continue on risperidone 0.5mg bid behavorial issues, but pt has not been able to tolerate po much. continue to monitor on telemetry High risk of mortality given his multiple comorbid factors and presence of sepsis discussed with , Patient is DNR, aware that he may not survice this admission and we may have to make him c omfort care NPO diet for now Consider NG feeding if mental status improves, but for now patient is not in condition to allow feeds. OT/ST/ PT eval once mental status improves hep sq for dvt prophylaxis. Medical - PN: Qual - VTE Deep Vein Thrombosis/Pulmonary Embolism Present on Admission: No
[2017-05-17] MEDS: INSULIN LISPRO 1 UNIT/0.01 ML UNIT SQ SCH (18:10)
[2017-05-18] MEDS: PIPERACILLIN SODIUM/TAZOBACTAM 2.25 GM in DEXTROSE 5% IN WATER 50 ML IV SCH ×4 (00:25→17:44)
[2017-05-18] MEDS: INSULIN LISPRO 1 UNIT/0.01 ML UNIT SQ SCH ×4 (00:29→17:52)
[2017-05-18] MEDS: IPRATROPIUM/ALBUTEROL 3 ML AMPUL.NEB NEB SCH ×6 (03:25→23:06)
[2017-05-18] MEDS: 0.9 % SODIUM CHLORIDE 10 ML SYRINGE IV SCH ×3 (05:49→20:49)
[2017-05-18] MEDS: methylPREDNISolone SOD SUCC 125 MG/2 ML VIAL IV SCH ×3 (05:49→20:48)
[2017-05-18 06:59] LABS: Basophils # (Auto) 0.1 K/mcL (0.0-0.3); Basophils % (Auto) 1.1 % (0.0-2.0); Eosinophils # (Auto) 0 K/mcL (0.0-0.7); Eosinophils % (Auto) 0 % (0.0-7.0); Granulocytes % (Auto) 92.9 % (38.0-78.0); Lymphocytes # (Auto) 0.5 K/mcL (1.5-4.8); Lymphocytes % (Auto) 4.3 % (15.5-49.0); Mean Cell Volume 109.6 fL (80.0-100.0); Mean Corpuscular HGB Conc 33.2 g/dL (31.0-36.0); Mean Corpuscular Hemoglobin 36.4 pg (26.0-34.0); Monocytes # (Auto) 0.2 K/mcL (0.1-0.9); Monocytes % (Auto) 1.7 % (1.0-12.0); Platelet Count 112 K/mcL (140-440); RBC 4.34 M/mcL (4.50-5.90); Red Cell Distribution Width 20.3 % (11.5-14.5)
[2017-05-18 07:17] LABS: ALT/SGPT 39 U/l (0-40); Albumin 3.8 gm/dL (3.2-5.2); Albumin/Globulin Ratio 1.3 (1.0-2.3); Alkaline Phosphatase 63 U/L (39-117); Bilirubin,Direct 2.2 mg/dL (0.0-0.3); Blood Urea Nitrogen 73 mg/dl (8-23); Gamma Glutamyl Transpeptidase 68 U/L (8-61); Uric Acid 14.1 mg/dL (2.5-8.0)
[2017-05-18] MEDS: POTASSIUM CHLORIDE 20 MEQ TABLET PO SCH ×2 (08:00→16:15)
[2017-05-18] MEDS: LEVOTHYROXINE 25 MCG TABLET PO SCH (08:00)
[2017-05-18] MEDS ORDERED: DEXTROSE 5% IN WATER 1,000 ML IV SCH ×2 (09:30→13:47)
[2017-05-18] MEDS: SIMVASTATIN 10 MG TABLET PO SCH (09:41)
[2017-05-18] MEDS: HEPARIN 5,000 UNIT/ML VIAL SQ SCH ×2 (09:50→20:48)
[2017-05-18] MEDS: INSULIN GLARGINE, HUMAN 1 UNIT/0.01 ML SQ SCH ×2 (12:04→15:34)
[2017-05-18] MEDS: VANCOMYCIN 1,000 MG in 0.9 % SODIUM CHLORIDE 250 ML IV SCH (12:23)
[2017-05-18 13:27] LABS: Blood Urea Nitrogen 75 mg/dl (8-23)
--- NOTE | 2017-05-18 13:27 | Internal Med Progress Note ---
Medical - PN: Subj Patient information: Note initiated : 05/18/17 at 1:26 pm Service Date, if different from initiated Date: [] Patient: Tico Dominguez 86 y/o M admitted on 05/12/17 for SOB, Wheezing/UTI, Sepsis. Chief Complaint: [] Interval history: Mr. Dominguez is a 86 year old Male with multple medical issues presents to the ER with shortness of breath, weakness and possibly some confusion. The patient is a very poor historian and did not provide any meaningful history , his who volunteer in this hospital was at bedside who provided much of the history The patient has multiple medical issues and has been progressively getting worse over the last 2-3 weeks. he has been more weak, tired fatigued and progressively more short of breath and has been wheezing. She has noticed that his effort tolerance has reduced significantly. His condition deteriorated more rapidly over the last 1 week. He fell down and scrapped his knee. The patient notes the only symptom he has is that he is feeling cold. Beyond that he did not complain much. According to the the patient also has had some decline in his mental status. In the ER his temp was on the lower end, labs showed wbc 6.7, ghb 12.2, NA 138, K 4.9, bicarb 20, creat 2.2 (has ckd) glucose 124. D dmier was 7, Lactic acide 3.7, bNP 85365, trop neg Ua suggestive of UTI, muro placed with significant amount of cloudy urine. CXR done which showed mild chf, no pneumonia VQ scan done which was negative for PE. The patient was therefore admitted to the hospital for further management May 13 Patient seen examined overnight patient became more agitated and anxious, trying to get out of bed, aggresive to wards care staff and provider needing restrains to keep him harming self and removing medical devices. He remained calm during the day, He has intermittent wheezing in the day. CT chest done showed CHF K was elevated this AM responded well to IV lasix, repeat came down to normal levels Plan to continue iV abx, duonebs and steroids, IV lasix today May 14 patient seen examined drowsy this am, opened eyes to verbal commands and light touch, but did not follow commands sedative given around 3am patient in restraints to avoid harm to self and care providers. to prevent removal of medical devices. His lactic acid was elevated again today, bolus given recheck given his pseudomonas in past was senstive to cipro, change cefepime to cipro, given some cases of cefepime induced encephalophathy. CT scan chest did not show any e/o bronchial lesion to expalin uppe airway wheeze which is intermittent. May 15 Patient seen examined no acute overnight issues some nsvt on tele patient still in restraints, does not follow commands and is fairly agitated during exam he otherwise sleeps ok CT head is neg, CT abdo pelvis without contrast shows some thickened bladder, but no other sourse of infection he has pooor urine output. but his bp is stable, His Lactate remains elevated May 16 Patient seen examined no acute issues overnight, still confused remains in restraints, intermittent tachypenai followed by periods of normal breathing. Lactate remains elevated patient was at bedside, educated and updated on patients critical condition , she is thankful and seems to understand poor prognosis. He is on vanco and zosyn, for now. monitor closely May 17 patient seen examined, no acute overnight issues, did respond somewhat to the diuretics started last night placed on bipap this AM, given that his condition worsened. his breathing is chyene shanks type pattern CT head is neg but difficult to r/o occult stroke cxr shows pulmonary edema nad chf can also present in this fashion, therefore patient is being aggressively diuresed At this point given stability on bp I think that the lactic acidosis is more from chf, resp issues than hypoperfusion of sepsis. hold off on any more fluids Again discussed with the that he may not make it through this admission given his resp and cardiac issue. she is aware and notes she is preparing her family for bad news. may 18 Patient seen examined, overnight events noted Plan of care reviewed with family Patient still tachypenic with kussmal breathig xray chest this AM is better he remains of bipap his sodium level keeps trending up, Nephrology consulted IV d5 started to help build free water, Plan to hold off the lasix drip for now monitor his response and use prn IV lasix to help with his diuresis. Pertinent ROS: unable - Constitutional Vitals: Vital Signs Temp Pulse Resp BP Pulse Ox 97.1 F 70 18 118/100 100 05/17/17 20:01 05/18/17 11:29 05/18/17 11:29 05/18/17 12:01 05/18/17 12:19 Period Temp Pulse Resp BP Sys/Michael Pulse Ox Last 24 Hr 97.1 F-97.7 F 65-71 10-25 102-139/15-113 89-100 Intake and Output 05/17/17 05/18/17 05/18/17 21:59 05:59 13:59 Intake Total 100 / 100 50 / 50 50 / 50 Output Total 3850 / 3850 3250 / 3250 800 / 800 Balance -3750 / -3750 -3200 / -3200 -750 / -750 Weight 157 lb 4.8 oz Intake & Output: Intake & Output 05/17/17 05/18/17 05/18/17 21:59 05:59 13:59 Intake Total 100 / 100 50 / 50 50 / 50 Output Total 3850 / 3850 3250 / 3250 800 / 800 Balance -3750 / -3750 -3200 / -3200 -750 / -750 Weight 157 lb 4.8 oz Intake: IV 100 / 100 50 / 50 50 / 50 Zosyn 2.25 gm In Dextrose 5% in 100 / 100 50 / 50 50 / 50 Water 50 ml @ 100 mls/hr IV Q6H [facility] Rx#:[id number] Output: Urine Catheter Amount 3850 / 3850 3250 / 3250 800 / 800 Exam: Constitutional; Afebrile, not cooperative, Eyes- No icterus, , No periorbital swelling Ears- Ext ear normal, Neck- Midline trachea, supple Respiratory system: Air Entry equal on both sides, No crackles or wheezing, no rhonchi. Intermittent wheeznig noted. CVS- Rate rhythm regular, S1,S2 heard, no gallop, no rub. 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 Medical - PN: Obj Da - Labs CBC & Chem 7: 05/18/17 06:34 05/18/17 12:11 Labs: Abnormal Lab Results 05/18/17 05/18/17 05/18/17 09:35 09:32 06:34 WBC RBC Hgb Hct MCV MCH RDW Plt Count Gran % Lymph % (Auto) Gran # Lymph # (Auto) Sodium 157 H Chloride 111 H Carbon Dioxide Anion Gap 19.0 H BUN 73 H Creatinine 2.7 H Glucose 252 H Osmolality 363 H Uric Acid 14.1 H Calcium Phosphorus 4.9 H Magnesium 3.0 H Total Bilirubin 4.5 H Direct Bilirubin 2.2 H GGT 68 H AST 40 H Lactate Dehydrogenase 495 H NT-Pro-B Natriuret Pep Total Protein Albumin Vancomycin Trough 23.0 H* 05/18/17 05/17/17 05/17/17 06:34 14:12 06:15 WBC 12.5 H 12.0 H RBC 4.34 L 3.62 L Hgb 13.4 L Hct 39.7 L MCV 109.6 H 109.6 H MCH 36.4 H 37.1 H RDW 20.3 H 20.4 H Plt Count 112 L 97 L Gran % 92.9 H 93.2 H Lymph % (Auto) 4.3 L 4.6 L Gran # 11.6 H 11.2 H Lymph # (Auto) 0.5 L 0.5 L Sodium 152 H Chloride 114 H Carbon Dioxide 19 L Anion Gap 19.0 H BUN 66 H Creatinine 2.4 H Glucose 355 H Osmolality Uric Acid Calcium 8.2 L Phosphorus Magnesium Total Bilirubin Direct Bilirubin GGT AST Lactate Dehydrogenase NT-Pro-B Natriuret Pep Total Protein Albumin Vancomycin Trough 05/17/17 05/16/17 05/16/17 03:57 03:57 03:57 WBC 14.1 H RBC 3.56 L Hgb 12.8 L Hct 38.8 L MCV 109.1 H MCH 35.9 H RDW 21.2 H Plt Count 95 L Gran % 93.6 H Lymph % (Auto) 3.4 L Gran # 13.2 H Lymph # (Auto) 0.5 L Sodium 153 H 147 H Chloride 116 H 112 H Carbon Dioxide 16 L 18 L Anion Gap 21.0 H 17.0 H BUN 59 H 54 H Creatinine 2.0 H 1.9 H Glucose 301 H 271 H Osmolality Uric Acid 12.1 H 12.0 H Calcium 8.1 L 8.2 L Phosphorus Magnesium 2.9 H 2.8 H Total Bilirubin 3.5 H 2.8 H Direct Bilirubin 2.1 H 1.5 H GGT AST 47 H Lactate Dehydrogenase 516 H 381 H NT-Pro-B Natriuret Pep 65803.0 H Total Protein 5.8 L 5.8 L Albumin Vancomycin Trough 05/15/17 16:58 WBC RBC Hgb Hct MCV MCH RDW Plt Count Gran % Lymph % (Auto) Gran # Lymph # (Auto) Sodium 146 H Chloride 112 H Carbon Dioxide 18 L Anion Gap BUN 54 H Creatinine 1.8 H Glucose 233 H Osmolality Uric Acid 12.6 H Calcium 8.1 L Phosphorus Magnesium 2.8 H Total Bilirubin 2.5 H Direct Bilirubin 1.2 H GGT AST Lactate Dehydrogenase 348 H NT-Pro-B Natriuret Pep Total Protein 5.7 L Albumin 3.1 L Vancomycin Trough Meds: Medications Acetaminophen (Tylenol) 650 mg PO Q6HP PRN PRN Reason: PAIN/FEVER > 101 Hydrocodone Bitart/Acetaminophen ([place] 5/325mg) 1 tab PO Q4HP PRN PRN Reason: Pain Albuterol/Ipratropium (Duoneb) 3 ml NEB Q4HRT [facility] Last Admin: 05/18/17 11:13 Dose: 3 ml Dextrose (Dextrose 50%) 0 ml IV UD PRN PRN Reason: Hypoglycemia Diagnostic Test (Pha) (Accu-Chek) 1 each FS Q6 [facility] Last Admin: 05/18/17 11:58 Dose: 1 each Heparin Sodium (Porcine) (Heparin) 5,000 unit SQ Q12 [facility] Last Admin: 05/18/17 09:50 Dose: 5,000 unit Piperacillin Sod/Tazobactam (Sod 2.25 gm/ Dextrose) 50 mls @ 100 mls/hr IV Q6H [facility] Last Admin: 05/18/17 12:48 Dose: 100 mls/hr Dextrose (Dextrose 5% In Water) 1,000 mls @ 50 mls/hr IV .Q20H [facility] Last Admin: 05/18/17 09:49 Dose: 50 mls/hr Insulin Glargine (Lantus) 10 unit SQ DAILY [facility] Last Admin: 05/18/17 12:04 Dose: 10 unit Insulin Human Lispro (Humalog) 0 unit SQ Q6 [facility] PRN Reason: Protocol Last Admin: 05/18/17 12:03 Dose: 2 unit Levothyroxine Sodium (Synthroid) 25 mcg PO ACB [facility] Last Admin: 05/18/17 08:00 Dose: Not Given Lorazepam (Ativan) 0.5 mg IV Q6HP PRN PRN Reason: ANXIETY/SEDATION Last Admin: 05/15/17 14:08 Dose: 0.5 mg Methylprednisolone Sodium Succinate (Solu-Medrol) 62.5 mg IV Q12 [facility] Last Admin: 05/18/17 09:50 Dose: 62.5 mg Naloxone HCl (Narcan) 0.1 mg IV Q2MIN PRN PRN Reason: Opiate Reversal Ondansetron HCl (Zofran) 4 mg IV Q4HP PRN PRN Reason: Nausea And Vomiting Potassium Chloride (Kdur) 20 meq PO BIDCC [facility] Last Admin: 05/18/17 08:00 Dose: Not Given Simvastatin (Zocor) 5 mg PO DAILY [facility] Last Admin: 05/18/17 09:41 Dose: Not Given Sodium Chloride (Saline Flush) 10 ml IV Q8 [facility] Last Admin: 05/18/17 05:49 Dose: 10 ml Vancomycin HCl (Vancomycin Per Pharmacy) 1 order IV UD [facility] Medical - PN: A/P - Time Spent With Patient Total time spent is greater than 50% in coordination of care (as documented) at patient's floor/unit and/or counseling patient: - Narrative A/P Narrative: A/P Sepsis Lactic Acidosis Congestive heart failure, poor lvef as per last echo. 20% lvef early this year Altered mental status,/ septic Encephalopathy/ ? occult brainstem cva? Chronic Kidney Disease acute on chr renal failiure. thrombocytopenia Reactive Air way disease HTN Coronary Artery disease cholecystitis? Delirium NSVT on tele short run of 3-7 beats Hypernatremia. Acute respiratory failure, Plan WBC stable, on broad spectrum antibiotics start on d5, titrate to help bring down sodium levels Nephrology consulted repeat Echo continue on bipap possible that lactic acidosis is from severe chf bp stable for now await repeat urine cx wean down steroids reanl function worse, monitor closely Gluose high, but being managed with launts and sliding scale, unable to tolerate much orally family updated on the plan of care High risk of mortality given his multiple comorbid factors and presence of sepsis discussed with , Patient is DNR, aware that he may not survive this admission and we may have to make him comfort care NPO diet for now Consider NG feeding if mental status improves, but for now patient is not in condition to allow feeds. OT/ST/ PT eval once mental status improves hep sq for dvt prophylaxis. Medical - PN: Qual - VTE Deep Vein Thrombosis/Pulmonary Embolism Present on Admission: No
--- NOTE | 2017-05-18 14:10 | XRay Report ---
HISTORY: Reason for Exam:shortness of breath and pulmonary edema FINDINGS: The heart is mildly enlarged. It has diminished significantly in size since 05/16/17. There is still pulmonary edema but this has also improved. There is dense consolidation above the left diaphragm and beyond the left heart border. This may be superimposed atelectasis. Small bilateral pleural effusions are still present. IMPRESSION: Improving congestive heart failure Interpreted and Authenticated by: James Cuenca 05/18/17
[2017-05-18] MEDS: ACETAMINOPHEN 650 MG/65 ML BOTTLE IV SCH ×2 (16:32→22:36)
--- NOTE | 2017-05-18 17:41 | Nephrology History & Physical ---
History of Present Illness Patient information: Note initiated : 05/18/17 at 5:36 pm Service Date, if different from initiated Date: [] Patient: Tico Dominguez a 86 y/o M admitted on 05/12/17 for SOB, Wheezing/UTI, Sepsis. Chief Complaint: [SOB] Please note that this is nephrology consult note Chief complaint: SOB HPI: Mr. Dominguez is a 86 year old M with PMH of ischemic cardiomyopathy,CHF, CKD and other medical issues who is admitted with c/o worsening SOB and confusion Patient was diagnosed with UTI and CHF and has been managed with antibiotics ad diuretics. His hospital course is complicated by worsening mental status and now hypernatremia and worsening renal function and hence nephrology is consulted Patient is unresponsive and unable to provide any information His states that he has been more confused for the last 2-3 weeks prior to his admission. He also had a fall at home. He was brought to ER for severe SOB and wheezing. On evaluation he had elevated white count, d sandy and elevated pro bnp, h is UA was comptabile with s/o infection but culture shows nonpathogenic skin hafsa. PE was ruled out by VQ scan. He is currently on vanc, zosyn for this He was started on IV lasix gtt for worsening respiratory status and CHF on CXR, he is also on Bipap ventilation Review of Systems ROS unobtainable: due to mental status Past History Past medical history: ischemic cardiomyopathy CHF CKD stage III h/o bladder outlet obstruction and recurrent UTI H/O tia Past surgical history: h/o AAA aneurysm repair h/o pacemaker placement Past family history: not pertinent Past social history: lives with his currently no addictions but has h/o smoking in the past Medications and Allergies Home Medications Medication Instructions Recorded Confirmed Type Levothyroxine [Synthroid] 25 mcg PO DAILY 09/17/15 05/12/17 History Lovastatin 10 mg PO DAILY 09/17/15 05/12/17 History carvedilol 12.5 mg tablet 25 mg PO BID 07/27/16 05/12/17 History Furosemide [Lasix] 20 mg PO DAILY 05/12/17 05/12/17 History Potassium Chloride [Klor-Con M20] 20 meq PO BID 05/12/17 05/12/17 History Allergies Allergy/AdvReac Type Severity Reaction Status Date / Time No Known Drug Allergies Allergy Verified 04/08/17 10:20 Exam - Vital Signs Vital signs: Temp Pulse Resp BP Pulse Ox 98.6 F 66 22 131/79 100 05/18/17 14:02 05/18/17 15:54 05/18/17 15:54 05/18/17 15:01 05/18/17 16:13 - General Appearance General appearance: appears started age, chronically ill EENT: mucous membranes dry Neck: JVD Respiratory: clear (on bipap ventilation) Cardiology: no edema, normal S1, normal S2 Gastrointestinal: no tenderness, no organomegaly Integumentary: warm and dry Neurologic: obtunded Musculoskeletal: no erythema, no cyanosis Results - Lab Results 05/18/17 06:34 05/18/17 12:11 Most recent lab results Calcium 9.0 mg/dl (8.6-10.4) 05/18/17 12:11 Phosphorus 4.9 mg/dL (2.7-4.5) H 05/18/17 06:34 Magnesium 3.0 mg/dL (1.6-2.5) H 05/18/17 06:34 Assessment and Plan (1) Acute on chronic renal failure baseline s.creatinine around 2.0, s.creatinine last 2 days 2.7-2.4, BUN is upto 75 cardiorenal renal vs pre renal will obtain urinary studies would request to cut back on diuresis to aim 1-2L net negative given improvement in pulmonary congestion please dose antibiotics to renal function avoid nephrotoxic meds patient will not be a candidate for dialysis given his medical issues, will discuss with family if has persistent decline in renal function Hypernatremia from free water depletion D5 water has b een increased to 100c/hour, he will likely need this at higher rate of 150-175ml/min or free water through NG tube Correction of free water complicated by pulmonary edema and poor respiratory status would not correct more than 12meq in 24 hours to prevent osmotic demyelination please check labs q hour to prevent overcorrection AMS: CT scan of brain with diffuse ischemic white matter disease, dilated ventricles and lacunar infarcts, UTI, electrolyte disorder all contributing Patient continues to have extremely poor prognosis with very high risk of mortality this hospital stay Status: Acute (2) Hypernatremia Status: Acute
[2017-05-18 17:52] LABS: Blood Urea Nitrogen 76 mg/dl (8-23)
[2017-05-18] MEDS: DEXTROSE 5% IN WATER 1,000 ML IV SCH ×2 (18:45→21:22)
[2017-05-18 19:16] LABS: Appearance,Urine CLEAR; Bacteria,Urine 0 /hpf (0); Bilirubin,Urine NEG (NEG); Color,Urine YELLOW; Glucose,Urine (UA) NEGATIVE (NEG); Leukocyte Esterase,Urine NEG /uL (NEG); Mucus,Urine FEW /hpf (0); Nitrate,Urine NEG (NEG); Protein,Urine NEG (NEG); Specific Gravity,Urine 1.011 (1.000-1.035); Urine Blood 0.2 mg/dL (<0.03); Urine Hyaline Cast 5 /lpf (0-2); Urine RBC 1 /hpf (0-1); Urine Squamous Epithelial Cell < 1 /hpf (0-4); Urine WBC 2 /hpf (0-4); Urobilinogen,Urine NEG (NEG)
[2017-05-18] MEDS: FUROSEMIDE 100 MG/10 ML VIAL IV SCH (20:14)
[2017-05-18 21:29] LABS: Blood Urea Nitrogen 78 mg/dl (8-23)
[2017-05-18] MEDS ORDERED: POTASSIUM CHLORIDE 80 MEQ in DEXTROSE 5% IN WATER 1,000 ML IV ONE (21:31)
[2017-05-18] MEDS ORDERED: POTASSIUM CHLORIDE 20 MEQ/10 ML VIAL IV ONE ×2 (21:41→21:42)
[2017-05-19] MEDS: PIPERACILLIN SODIUM/TAZOBACTAM 2.25 GM in DEXTROSE 5% IN WATER 50 ML IV SCH ×4 (00:33→17:24)
[2017-05-19] MEDS: INSULIN LISPRO 1 UNIT/0.01 ML UNIT SQ SCH ×4 (00:38→17:32)
[2017-05-19] MEDS: DEXTROSE 5% IN WATER 1,000 ML IV SCH ×5 (03:24→17:18)
[2017-05-19] MEDS: IPRATROPIUM/ALBUTEROL 3 ML AMPUL.NEB NEB SCH ×6 (03:26→22:58)
[2017-05-19 03:48] LABS: Blood Urea Nitrogen 74 mg/dl (8-23)
[2017-05-19] MEDS ORDERED: INSULIN REGULAR, HUMAN 1 UNIT/0.01 ML UNIT IV ONE (04:30)
[2017-05-19] MEDS ORDERED: INSULIN REGULAR, HUMAN 1 UNIT/0.01 ML UNIT ONE (04:30)
[2017-05-19] MEDS: ACETAMINOPHEN 650 MG/65 ML BOTTLE IV SCH ×4 (04:31→22:06)
[2017-05-19] MEDS: 0.9 % SODIUM CHLORIDE 10 ML SYRINGE IV SCH ×3 (05:44→20:32)
[2017-05-19 06:44] LABS: Basophils # (Auto) 0 K/mcL (0.0-0.3); Basophils % (Auto) 0 % (0.0-2.0); Eosinophils # (Auto) 0.1 K/mcL (0.0-0.7); Eosinophils % (Auto) 0.3 % (0.0-7.0); Granulocytes % (Auto) 94.1 % (38.0-78.0); Lymphocytes # (Auto) 0.4 K/mcL (1.5-4.8); Lymphocytes % (Auto) 2.3 % (15.5-49.0); Mean Cell Volume 109.6 fL (80.0-100.0); Mean Corpuscular HGB Conc 33.4 g/dL (31.0-36.0); Mean Corpuscular Hemoglobin 36.6 pg (26.0-34.0); Monocytes # (Auto) 0.6 K/mcL (0.1-0.9); Monocytes % (Auto) 3.3 % (1.0-12.0); Platelet Count 104 K/mcL (140-440); RBC 3.72 M/mcL (4.50-5.90); Red Cell Distribution Width 20.3 % (11.5-14.5)
[2017-05-19 07:23] LABS: ALT/SGPT 33 U/l (0-40); Albumin 2.9 gm/dL (3.2-5.2); Albumin/Globulin Ratio 1.2 (1.0-2.3); Alkaline Phosphatase 50 U/L (39-117); Bilirubin,Direct 1.7 mg/dL (0.0-0.3); Blood Urea Nitrogen 72 mg/dl (8-23); Gamma Glutamyl Transpeptidase 59 U/L (8-61); Magnesium 2.5 mg/dL (1.6-2.5)
[2017-05-19] MEDS ORDERED: POTASSIUM CHLORIDE 40 MEQ in DEXTROSE 5% IN WATER 500 ML IV ONE ×2 (07:45→16:38)
[2017-05-19] MEDS: LEVOTHYROXINE 25 MCG TABLET PO SCH (08:48)
[2017-05-19] MEDS: POTASSIUM CHLORIDE 20 MEQ TABLET PO SCH ×2 (08:48→17:26)
[2017-05-19] MEDS: SIMVASTATIN 10 MG TABLET PO SCH (08:49)
[2017-05-19] MEDS: FUROSEMIDE 100 MG/10 ML VIAL IV SCH (08:57)
[2017-05-19] MEDS: methylPREDNISolone SOD SUCC 125 MG/2 ML VIAL IV SCH (08:57)
[2017-05-19] MEDS: HEPARIN 5,000 UNIT/ML VIAL SQ SCH ×2 (08:58→20:32)
[2017-05-19] MEDS: INSULIN GLARGINE, HUMAN 1 UNIT/0.01 ML SQ SCH ×2 (08:58→09:45)
--- NOTE | 2017-05-19 09:37 | Internal Med Progress Note ---
Medical - PN: Subj Patient information: Note initiated : 05/19/17 at 9:33 am Service Date, if different from initiated Date: [] Patient: Tico Dominguez 86 y/o M admitted on 05/12/17 for SOB, Wheezing/UTI, Sepsis. Chief Complaint: [] Interval history: Mr. Dominguez is a 86 year old Male with multple medical issues presents to the ER with shortness of breath, weakness and possibly some confusion. The patient is a very poor historian and did not provide any meaningful history , his who volunteer in this hospital was at bedside who provided much of the history The patient has multiple medical issues and has been progressively getting worse over the last 2-3 weeks. he has been more weak, tired fatigued and progressively more short of breath and has been wheezing. She has noticed that his effort tolerance has reduced significantly. His condition deteriorated more rapidly over the last 1 week. He fell down and scrapped his knee. The patient notes the only symptom he has is that he is feeling cold. Beyond that he did not complain much. According to the the patient also has had some decline in his mental status. In the ER his temp was on the lower end, labs showed wbc 6.7, ghb 12.2, NA 138, K 4.9, bicarb 20, creat 2.2 (has ckd) glucose 124. D dmier was 7, Lactic acide 3.7, bNP 95854, trop neg Ua suggestive of UTI, muro placed with significant amount of cloudy urine. CXR done which showed mild chf, no pneumonia VQ scan done which was negative for PE. The patient was therefore admitted to the hospital for further management May 13 Patient seen examined overnight patient became more agitated and anxious, trying to get out of bed, aggresive to wards care staff and provider needing restrains to keep him harming self and removing medical devices. He remained calm during the day, He has intermittent wheezing in the day. CT chest done showed CHF K was elevated this AM responded well to IV lasix, repeat came down to normal levels Plan to continue iV abx, duonebs and steroids, IV lasix today May 14 patient seen examined drowsy this am, opened eyes to verbal commands and light touch, but did not follow commands sedative given around 3am patient in restraints to avoid harm to self and care providers. to prevent removal of medical devices. His lactic acid was elevated again today, bolus given recheck given his pseudomonas in past was senstive to cipro, change cefepime to cipro, given some cases of cefepime induced encephalophathy. CT scan chest did not show any e/o bronchial lesion to expalin uppe airway wheeze which is intermittent. May 15 Patient seen examined no acute overnight issues some nsvt on tele patient still in restraints, does not follow commands and is fairly agitated during exam he otherwise sleeps ok CT head is neg, CT abdo pelvis without contrast shows some thickened bladder, but no other sourse of infection he has pooor urine output. but his bp is stable, His Lactate remains elevated May 16 Patient seen examined no acute issues overnight, still confused remains in restraints, intermittent tachypenai followed by periods of normal breathing. Lactate remains elevated patient was at bedside, educated and updated on patients critical condition , she is thankful and seems to understand poor prognosis. He is on vanco and zosyn, for now. monitor closely May 17 patient seen examined, no acute overnight issues, did respond somewhat to the diuretics started last night placed on bipap this AM, given that his condition worsened. his breathing is chyene shanks type pattern CT head is neg but difficult to r/o occult stroke cxr shows pulmonary edema nad chf can also present in this fashion, therefore patient is being aggressively diuresed At this point given stability on bp I think that the lactic acidosis is more from chf, resp issues than hypoperfusion of sepsis. hold off on any more fluids Again discussed with the that he may not make it through this admission given his resp and cardiac issue. she is aware and notes she is preparing her family for bad news. may 18 Patient seen examined, overnight events noted Plan of care reviewed with family Patient still tachypenic with kussmal breathig xray chest this AM is better he remains of bipap his sodium level keeps trending up, Nephrology consulted IV d5 started to help build free water, Plan to hold off the lasix drip for now monitor his response and use prn IV lasix to help with his diuresis. May 19 patient seen examined, mental status remains poor, he was able to open eyes today to my voice, He is still moaning, remains on bipap His sodium level is better today, his dose of lasix was held yesterday, WIll change to IV lasix 60 qday for now The patient sodium is improving, the patient changes is sodium are acute less than 24 hrs, therefore would not need to follow very strict corrections, none the less the correction is less than 12 in 24 hrs, starting yesterday AM to today AM. The patient remains negative Nephrology consult appreciated WBC is trending up, will cut back on steroids to once daily now Plan to wean off as tolerated Pertinent ROS: unable. - Constitutional Vitals: Vital Signs Temp Pulse Resp BP Pulse Ox 97.1 F 69 18 110/92 99 05/19/17 07:16 05/19/17 06:51 05/19/17 07:16 05/19/17 07:16 05/19/17 07:16 Period Temp Pulse Resp BP Sys/Michael Pulse Ox Last 24 Hr 97.1 F-98.7 F 62-70 12-22 84-143/15-124 96-100 Intake and Output 05/18/17 05/19/17 05/19/17 21:59 05:59 13:59 Intake Total 1165 / 1165 1180 / 1180 Output Total 1500 / 1500 Balance -335 / -335 1180 / 1180 Weight 146 lb 4 oz Intake & Output: Intake & Output 05/18/17 05/19/17 05/19/17 21:59 05:59 13:59 Intake Total 1165 / 1165 1180 / 1180 Output Total 1500 / 1500 Balance -335 / -335 1180 / 1180 Weight 146 lb 4 oz Intake: IV 1165 / 1165 1180 / 1180 Dextrose 5% in Water 1,000 ml @ 317 / 317 1000 / 1000 150 mls/hr IV .Q6H40M [facility] Rx#: [id number] Zosyn 2.25 gm In Dextrose 5% in 100 / 100 50 / 50 Water 50 ml @ 100 mls/hr IV Q6H [facility] Rx#:[id number] Output: Urine Catheter Amount 1500 / 1500 Exam: Constitutional; Afebrile, drowsy, on bipap, does not obey commands. Eyes- No icterus, , No periorbital swelling Ears- Ext ear normal, . Neck- Midline trachea, supple Respiratory system: Air Entry equal on both sides, No crackles or wheezing, no rhonchi. intermittent upper airway wheeze, still has kussmal breathing pattern. CVS- Rate rhythm regular, S1,S2 heard, no gallop, no rub. paced rhythm. 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 Medical - PN: Obj Da - Labs CBC & Chem 7: 05/19/17 06:00 05/19/17 06:00 Labs: Abnormal Lab Results 05/19/17 05/19/17 05/19/17 06:00 06:00 02:40 WBC 17.8 H RBC 3.72 L Hgb Hct 40.7 L MCV 109.6 H MCH 36.6 H RDW 20.3 H Plt Count 104 L Gran % 94.1 H Lymph % (Auto) 2.3 L Gran # 16.7 H Lymph # (Auto) 0.4 L Sodium 148 H 151 H Potassium Chloride Carbon Dioxide Anion Gap BUN 72 H 74 H Creatinine 2.4 H 2.4 H Glucose 352 H 452 H* Osmolality Uric Acid 12.0 H Calcium 7.8 L 8.0 L Phosphorus Magnesium Total Bilirubin 3.5 H Direct Bilirubin 1.7 H GGT AST Lactate Dehydrogenase 479 H NT-Pro-B Natriuret Pep Total Protein 5.4 L Albumin 2.9 L Urine Occult Blood Hyaline Casts Vancomycin Trough 05/18/17 05/18/17 05/18/17 20:08 17:57 16:46 WBC RBC Hgb Hct MCV MCH RDW Plt Count Gran % Lymph % (Auto) Gran # Lymph # (Auto) Sodium 156 H 160 H Potassium 2.7 L* Chloride 110 H 110 H Carbon Dioxide Anion Gap 17.0 H 23.0 H BUN 78 H 76 H Creatinine 2.8 H 2.6 H Glucose 297 H 311 H Osmolality Uric Acid Calcium 8.2 L Phosphorus Magnesium Total Bilirubin Direct Bilirubin GGT AST Lactate Dehydrogenase NT-Pro-B Natriuret Pep Total Protein Albumin Urine Occult Blood 0.2 A Hyaline Casts 5 H Vancomycin Trough 05/18/17 05/18/17 05/18/17 12:11 09:35 09:32 WBC RBC Hgb Hct MCV MCH RDW Plt Count Gran % Lymph % (Auto) Gran # Lymph # (Auto) Sodium 159 H Potassium Chloride 112 H Carbon Dioxide Anion Gap 20.0 H BUN 75 H Creatinine 2.4 H Glucose 267 H Osmolality 363 H Uric Acid Calcium Phosphorus Magnesium Total Bilirubin Direct Bilirubin GGT AST Lactate Dehydrogenase NT-Pro-B Natriuret Pep Total Protein Albumin Urine Occult Blood Hyaline Casts Vancomycin Trough 23.0 H* 05/18/17 05/18/17 05/17/17 06:34 06:34 14:12 WBC 12.5 H RBC 4.34 L Hgb Hct MCV 109.6 H MCH 36.4 H RDW 20.3 H Plt Count 112 L Gran % 92.9 H Lymph % (Auto) 4.3 L Gran # 11.6 H Lymph # (Auto) 0.5 L Sodium 157 H 152 H Potassium Chloride 111 H 114 H Carbon Dioxide 19 L Anion Gap 19.0 H 19.0 H BUN 73 H 66 H Creatinine 2.7 H 2.4 H Glucose 252 H 355 H Osmolality Uric Acid 14.1 H Calcium 8.2 L Phosphorus 4.9 H Magnesium 3.0 H Total Bilirubin 4.5 H Direct Bilirubin 2.2 H GGT 68 H AST 40 H Lactate Dehydrogenase 495 H NT-Pro-B Natriuret Pep Total Protein Albumin Urine Occult Blood Hyaline Casts Vancomycin Trough 05/17/17 05/17/17 06:15 03:57 WBC 12.0 H RBC 3.62 L Hgb 13.4 L Hct 39.7 L MCV 109.6 H MCH 37.1 H RDW 20.4 H Plt Count 97 L Gran % 93.2 H Lymph % (Auto) 4.6 L Gran # 11.2 H Lymph # (Auto) 0.5 L Sodium 153 H Potassium Chloride 116 H Carbon Dioxide 16 L Anion Gap 21.0 H BUN 59 H Creatinine 2.0 H Glucose 301 H Osmolality Uric Acid 12.1 H Calcium 8.1 L Phosphorus Magnesium 2.9 H Total Bilirubin 3.5 H Direct Bilirubin 2.1 H GGT AST 47 H Lactate Dehydrogenase 516 H NT-Pro-B Natriuret Pep 59409.0 H Total Protein 5.8 L Albumin Urine Occult Blood Hyaline Casts Vancomycin Trough Meds: Medications Acetaminophen (Tylenol) 650 mg PO Q6HP PRN PRN Reason: PAIN/FEVER > 101 Hydrocodone Bitart/Acetaminophen ([place] 5/325mg) 1 tab PO Q4HP PRN PRN Reason: Pain Albuterol/Ipratropium (Duoneb) 3 ml NEB Q4HRT [facility] Last Admin: 05/19/17 06:48 Dose: 3 ml Dextrose (Dextrose 50%) 0 ml IV UD PRN PRN Reason: Hypoglycemia Diagnostic Test (Pha) (Accu-Chek) 1 each FS Q6 [facility] Last Admin: 05/19/17 05:43 Dose: 1 each Furosemide (Lasix) 60 mg IV Q12 [facility] Last Admin: 05/19/17 08:57 Dose: 60 mg Heparin Sodium (Porcine) (Heparin) 5,000 unit SQ Q12 [facility] Last Admin: 05/19/17 08:58 Dose: 5,000 unit Piperacillin Sod/Tazobactam (Sod 2.25 gm/ Dextrose) 50 mls @ 100 mls/hr IV Q6H [facility] Last Admin: 05/19/17 05:44 Dose: 100 mls/hr Acetaminophen (Ofirmev) 650 mg in 65 mls @ 130 mls/hr IV Q6H [facility] Last Infusion: 05/19/17 05:41 Dose: Infused Dextrose (Dextrose 5% In Water) 1,000 mls @ 150 mls/hr IV .Q6H40M [facility] Last Admin: 05/19/17 08:48 Dose: Not Given Potassium Chloride 40 meq/ (Dextrose) 520 mls @ 130 mls/hr IV ONCE ONE Stop: 05/19/17 11:44 Last Admin: 05/19/17 08:46 Dose: 130 mls/hr Insulin Glargine (Lantus) 20 unit SQ DAILY [facility] Last Admin: 05/19/17 08:58 Dose: 20 unit Insulin Human Lispro (Humalog) 0 unit SQ Q6 [facility] PRN Reason: Protocol Levothyroxine Sodium (Synthroid) 25 mcg PO ACB [facility] Last Admin: 05/19/17 08:48 Dose: Not Given Lorazepam (Ativan) 0.5 mg IV Q6HP PRN PRN Reason: ANXIETY/SEDATION Last Admin: 05/15/17 14:08 Dose: 0.5 mg Methylprednisolone Sodium Succinate (Solu-Medrol) 62.5 mg IV DAILY [facility] Last Admin: 05/19/17 08:57 Dose: 62.5 mg Naloxone HCl (Narcan) 0.1 mg IV Q2MIN PRN PRN Reason: Opiate Reversal Ondansetron HCl (Zofran) 4 mg IV Q4HP PRN PRN Reason: Nausea And Vomiting Potassium Chloride (Kdur) 20 meq PO BIDCC [facility] Last Admin: 05/19/17 08:48 Dose: Not Given Simvastatin (Zocor) 5 mg PO DAILY [facility] Last Admin: 05/19/17 08:49 Dose: Not Given Sodium Chloride (Saline Flush) 10 ml IV Q8 [facility] Last Admin: 05/19/17 05:44 Dose: 10 ml Vancomycin HCl (Vancomycin Per Pharmacy) 1 order IV UD [facility] Medical - PN: A/P - Time Spent With Patient Total time spent is greater than 50% in coordination of care (as documented) at patient's floor/unit and/or counseling patient: - Narrative A/P Narrative: A/P Sepsis Lactic Acidosis Congestive heart failure, poor lvef as per last echo. 20% lvef early this year Altered mental status,/ septic Encephalopathy/ ? occult brainstem cva? Chronic Kidney Disease acute on chr renal failiure. thrombocytopenia Reactive Air way disease HTN Coronary Artery disease cholecystitis? Delirium NSVT on tele short run of 3-7 beats Hypernatremia. Acute respiratory failure, Plan WBC stable, trending up, check procalcitonin, on vanco and zoysn for now. On D5 to help manage hypernatremia, patient unfortunately is in CHF/ pulmonary edema, and still has hypernatremia, likely from Renal etiology Plan to continue with diuresis, to aim for neg balance, but try to keep sodium in normal range, Not a candidate for NG tube and free water administration. repeat Echo, results awaited. continue on bipap possible that lactic acidosis is from severe chf bp stable for now await repeat urine cx wean down steroids, once norberto now. renall function worse, monitor closely Gluose high, but being managed with launts and sliding scale, IV regular insulin given this AM, increase dose of lantus to 20, sliding scale to medicum, pt is on d5 at this time. will have to cut back isulin when he does not need D5w to help with sodium. unable to tolerate much orally High risk of mortality given his multiple comorbid factors and presence of sepsis discussed with , Patient is DNR, aware that he may not survive this admission and we may have to make him comfort care NPO diet for now Consider NG feeding if mental status improves, but for now patient is not in condition to allow feeds. OT/ST/ PT eval once mental status improves hep sq for dvt prophylaxis. Medical - PN: Qual - VTE Deep Vein Thrombosis/Pulmonary Embolism Present on Admission: No
[2017-05-19 10:58] LABS: Blood Urea Nitrogen 70 mg/dl (8-23)
[2017-05-19] MEDS ORDERED: VANCOMYCIN 1,000 MG in 0.9 % SODIUM CHLORIDE 250 ML IV ONE (12:00)
[2017-05-19 16:09] LABS: Blood Urea Nitrogen 68 mg/dl (8-23)
[2017-05-19 19:48] LABS: Blood Urea Nitrogen 67 mg/dl (8-23)
[2017-05-19] MEDS ORDERED: POTASSIUM CHLORIDE 20 MEQ/10 ML VIAL IV ONE (19:59)
[2017-05-20 00:21] LABS: Blood Urea Nitrogen 62 mg/dl (8-23)
[2017-05-20] MEDS: PIPERACILLIN SODIUM/TAZOBACTAM 2.25 GM in DEXTROSE 5% IN WATER 50 ML IV SCH ×4 (00:38→17:49)
[2017-05-20] MEDS: INSULIN LISPRO 1 UNIT/0.01 ML UNIT SQ SCH ×4 (00:38→17:49)
[2017-05-20] MEDS: IPRATROPIUM/ALBUTEROL 3 ML AMPUL.NEB NEB SCH ×6 (02:58→22:50)
[2017-05-20] MEDS: ACETAMINOPHEN 650 MG/65 ML BOTTLE IV SCH ×4 (04:56→21:23)
[2017-05-20] MEDS: DEXTROSE 5% IN WATER 1,000 ML IV SCH (04:58)
[2017-05-20] MEDS: 0.9 % SODIUM CHLORIDE 10 ML SYRINGE IV SCH ×3 (05:33→20:37)
[2017-05-20 07:08] LABS: Basophils # (Auto) 0 K/mcL (0.0-0.3); Basophils % (Auto) 0 % (0.0-2.0); Eosinophils # (Auto) 0.1 K/mcL (0.0-0.7); Eosinophils % (Auto) 0.8 % (0.0-7.0); Granulocytes % (Auto) 95.3 % (38.0-78.0); Lymphocytes # (Auto) 0.4 K/mcL (1.5-4.8); Lymphocytes % (Auto) 2.5 % (15.5-49.0); Mean Corpuscular HGB Conc 33.6 g/dL (31.0-36.0); Mean Corpuscular Hemoglobin 36.3 pg (26.0-34.0); Monocytes # (Auto) 0.2 K/mcL (0.1-0.9); Monocytes % (Auto) 1.4 % (1.0-12.0); Platelet Count 89 K/mcL (140-440); RBC 3.74 M/mcL (4.50-5.90); Red Cell Distribution Width 19.5 % (11.5-14.5)
[2017-05-20 07:38] LABS: ALT/SGPT 36 U/l (0-40); Albumin 2.8 gm/dL (3.2-5.2); Albumin/Globulin Ratio 1.2 (1.0-2.3); Alkaline Phosphatase 50 U/L (39-117); Bilirubin,Direct 1.7 mg/dL (0.0-0.3); Blood Urea Nitrogen 62 mg/dl (8-23); Gamma Glutamyl Transpeptidase 74 U/L (8-61); Magnesium 2.3 mg/dL (1.6-2.5); Uric Acid 9.6 mg/dL (2.5-8.0)
[2017-05-20] MEDS: LEVOTHYROXINE 25 MCG TABLET PO SCH (09:52)
[2017-05-20] MEDS: POTASSIUM CHLORIDE 20 MEQ TABLET PO SCH ×2 (09:52→17:20)
[2017-05-20] MEDS: SIMVASTATIN 10 MG TABLET PO SCH (09:53)
[2017-05-20] MEDS: INSULIN GLARGINE, HUMAN 1 UNIT/0.01 ML SQ SCH (09:59)
[2017-05-20] MEDS: HEPARIN 5,000 UNIT/ML VIAL SQ SCH ×2 (09:59→20:36)
[2017-05-20] MEDS: FUROSEMIDE 100 MG/10 ML VIAL IV SCH (10:00)
[2017-05-20] MEDS: methylPREDNISolone SOD SUCC 125 MG/2 ML VIAL IV SCH (10:01)
--- NOTE | 2017-05-20 15:14 | Internal Med Progress Note ---
Medical - PN: Subj Patient information: Note initiated : 05/20/17 at 3:09 pm Service Date, if different from initiated Date: [] Patient: Tico Dominguez 86 y/o M admitted on 05/12/17 for SOB, Wheezing/UTI, Sepsis. Chief Complaint: [] Interval history: Mr. Dominguez is a 86 year old Male with multple medical issues presents to the ER with shortness of breath, weakness and possibly some confusion. The patient is a very poor historian and did not provide any meaningful history , his who volunteer in this hospital was at bedside who provided much of the history The patient has multiple medical issues and has been progressively getting worse over the last 2-3 weeks. he has been more weak, tired fatigued and progressively more short of breath and has been wheezing. She has noticed that his effort tolerance has reduced significantly. His condition deteriorated more rapidly over the last 1 week. He fell down and scrapped his knee. The patient notes the only symptom he has is that he is feeling cold. Beyond that he did not complain much. According to the the patient also has had some decline in his mental status. In the ER his temp was on the lower end, labs showed wbc 6.7, ghb 12.2, NA 138, K 4.9, bicarb 20, creat 2.2 (has ckd) glucose 124. D dmier was 7, Lactic acide 3.7, bNP 35193, trop neg Ua suggestive of UTI, muro placed with significant amount of cloudy urine. CXR done which showed mild chf, no pneumonia VQ scan done which was negative for PE. The patient was therefore admitted to the hospital for further management May 13 Patient seen examined overnight patient became more agitated and anxious, trying to get out of bed, aggresive to wards care staff and provider needing restrains to keep him harming self and removing medical devices. He remained calm during the day, He has intermittent wheezing in the day. CT chest done showed CHF K was elevated this AM responded well to IV lasix, repeat came down to normal levels Plan to continue iV abx, duonebs and steroids, IV lasix today May 14 patient seen examined drowsy this am, opened eyes to verbal commands and light touch, but did not follow commands sedative given around 3am patient in restraints to avoid harm to self and care providers. to prevent removal of medical devices. His lactic acid was elevated again today, bolus given recheck given his pseudomonas in past was senstive to cipro, change cefepime to cipro, given some cases of cefepime induced encephalophathy. CT scan chest did not show any e/o bronchial lesion to expalin uppe airway wheeze which is intermittent. May 15 Patient seen examined no acute overnight issues some nsvt on tele patient still in restraints, does not follow commands and is fairly agitated during exam he otherwise sleeps ok CT head is neg, CT abdo pelvis without contrast shows some thickened bladder, but no other sourse of infection he has pooor urine output. but his bp is stable, His Lactate remains elevated May 16 Patient seen examined no acute issues overnight, still confused remains in restraints, intermittent tachypenai followed by periods of normal breathing. Lactate remains elevated patient was at bedside, educated and updated on patients critical condition , she is thankful and seems to understand poor prognosis. He is on vanco and zosyn, for now. monitor closely May 17 patient seen examined, no acute overnight issues, did respond somewhat to the diuretics started last night placed on bipap this AM, given that his condition worsened. his breathing is chyene shanks type pattern CT head is neg but difficult to r/o occult stroke cxr shows pulmonary edema nad chf can also present in this fashion, therefore patient is being aggressively diuresed At this point given stability on bp I think that the lactic acidosis is more from chf, resp issues than hypoperfusion of sepsis. hold off on any more fluids Again discussed with the that he may not make it through this admission given his resp and cardiac issue. she is aware and notes she is preparing her family for bad news. may 18 Patient seen examined, overnight events noted Plan of care reviewed with family Patient still tachypenic with kussmal breathig xray chest this AM is better he remains of bipap his sodium level keeps trending up, Nephrology consulted IV d5 started to help build free water, Plan to hold off the lasix drip for now monitor his response and use prn IV lasix to help with his diuresis. May 19 patient seen examined, mental status remains poor, he was able to open eyes today to my voice, He is still moaning, remains on bipap His sodium level is better today, his dose of lasix was held yesterday, WIll change to IV lasix 60 qday for now The patient sodium is improving, the patient changes is sodium are acute less than 24 hrs, therefore would not need to follow very strict corrections, none the less the correction is less than 12 in 24 hrs, starting yesterday AM to today AM. The patient remains negative Nephrology consult appreciated WBC is trending up, will cut back on steroids to once daily now Plan to wean off as tolerated May 20 Patient seen examined this am still drowsy, but not agitated, able to follow some commands, tried to verbalize name and let some concerns know, the pt labs are better, abg improved the patient still very drowsy, has not eaten or drank in 7-8 days remains on antibiotics I still think that the patient needs to be hospice, given his h/o cva, very severe, end stage chf, and ckd patient's seems to understand the overall poor prognosis, but the patients daugther in [facility] who is present at bedside, believes that the patient will eventually recover, the youngest son also apparently wants the patient to live. Explained to them again the poor prognosis and poor quality of life going forward. the rest of the family members as oper the pts are ok with whatever the patients decides. She is willing to talk with case management and hospice palliative teams to check their options At present I have stopped IVF and pt is off bipap, still has kussmal type breathing. not sure if occult brain stem stroke is present. Pertinent ROS: unable - Constitutional Vitals: Vital Signs Temp Pulse Resp BP Pulse Ox 96.6 F L 100 H 16 122/69 92 05/20/17 12:00 05/20/17 10:30 05/20/17 12:00 05/20/17 12:00 05/20/17 12:00 Period Temp Pulse Resp BP Sys/Michael Pulse Ox Last 24 Hr 96.6 F-97.4 F 67-100 12-24 77-122/59-81 92-100 Intake and Output 05/20/17 05/20/17 05/20/17 05:59 13:59 21:59 Intake Total 1180 / 1180 607 / 607 Output Total 1600 / 1600 Balance -420 / -420 607 / 607 Weight 150 lb 2 oz Patient Weight 05/21/17 05:59 Weight 150 lb 2 oz Intake & Output: Intake & Output 05/20/17 05/20/17 05/20/17 05:59 13:59 21:59 Intake Total 1180 / 1180 607 / 607 Output Total 1600 / 1600 Balance -420 / -420 607 / 607 Weight 150 lb 2 oz Intake: IV 1180 / 1180 607 / 607 Dextrose 5% in Water 1,000 ml @ 1000 / 1000 492 / 492 100 mls/hr IV .Q10H [facility] Rx#: [id number] Zosyn 2.25 gm In Dextrose 5% in 50 / 50 50 / 50 Water 50 ml @ 100 mls/hr IV Q6H [facility] Rx#:[id number] Output: Urine Catheter Amount 1600 / 1600 Other: # of times incontinent of 1 Bowels Exam: Constitutional; Afebrile, drowsy, but somewhat cooperative Eyes- No icterus, , No periorbital swelling Ears- Ext ear normal, Neck- Midline trachea, supple Respiratory system: Air Entry equal on both sides, No crackles or wheezing, no rhonchi. CVS- Rate rhythm regular, S1,S2 heard, no gallop, no rub. 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 Medical - PN: Obj Da - Labs CBC & Chem 7: 05/20/17 06:10 05/20/17 06:10 Labs: Abnormal Lab Results 05/20/17 05/20/17 05/19/17 06:10 06:10 22:50 WBC 16.7 H RBC 3.74 L Hct 40.4 L MCV 108.0 H MCH 36.3 H RDW 19.5 H Plt Count 89 L Gran % 95.3 H Lymph % (Auto) 2.5 L Gran # 15.9 H Lymph # (Auto) 0.4 L Sodium 148 H Potassium Chloride Anion Gap BUN 62 H 62 H Creatinine 2.2 H 2.0 H Glucose 207 H 196 H Osmolality Uric Acid 9.6 H Calcium 7.4 L 7.6 L Phosphorus Magnesium Total Bilirubin 3.2 H Direct Bilirubin 1.7 H GGT 74 H AST Lactate Dehydrogenase 520 H Total Protein 5.2 L Albumin 2.8 L Urine Occult Blood Hyaline Casts Vancomycin Trough 05/19/17 05/19/1717 18:55 14:25 09:35 WBC RBC Hct MCV MCH RDW Plt Count Gran % Lymph % (Auto) Gran # Lymph # (Auto) Sodium 148 H 150 H Potassium Chloride Anion Gap 17.0 H BUN 67 H 68 H 70 H Creatinine 2.4 H 2.1 H 2.3 H Glucose 254 H 297 H 249 H Osmolality Uric Acid Calcium 7.8 L 7.4 L 7.8 L Phosphorus Magnesium Total Bilirubin Direct Bilirubin GGT AST Lactate Dehydrogenase Total Protein Albumin Urine Occult Blood Hyaline Casts Vancomycin Trough 05/19/17 05/19/17 05/19/17 06:00 06:00 02:40 WBC 17.8 H RBC 3.72 L Hct 40.7 L MCV 109.6 H MCH 36.6 H RDW 20.3 H Plt Count 104 L Gran % 94.1 H Lymph % (Auto) 2.3 L Gran # 16.7 H Lymph # (Auto) 0.4 L Sodium 148 H 151 H Potassium Chloride Anion Gap BUN 72 H 74 H Creatinine 2.4 H 2.4 H Glucose 352 H 452 H* Osmolality Uric Acid 12.0 H Calcium 7.8 L 8.0 L Phosphorus Magnesium Total Bilirubin 3.5 H Direct Bilirubin 1.7 H GGT AST Lactate Dehydrogenase 479 H Total Protein 5.4 L Albumin 2.9 L Urine Occult Blood Hyaline Casts Vancomycin Trough 05/18/17 05/18/17 05/18/17 20:08 17:57 16:46 WBC RBC Hct MCV MCH RDW Plt Count Gran % Lymph % (Auto) Gran # Lymph # (Auto) Sodium 156 H 160 H Potassium 2.7 L* Chloride 110 H 110 H Anion Gap 17.0 H 23.0 H BUN 78 H 76 H Creatinine 2.8 H 2.6 H Glucose 297 H 311 H Osmolality Uric Acid Calcium 8.2 L Phosphorus Magnesium Total Bilirubin Direct Bilirubin GGT AST Lactate Dehydrogenase Total Protein Albumin Urine Occult Blood 0.2 A Hyaline Casts 5 H Vancomycin Trough 05/18/17 05/18/17 05/18/17 12:11 09:35 09:32 WBC RBC Hct MCV MCH RDW Plt Count Gran % Lymph % (Auto) Gran # Lymph # (Auto) Sodium 159 H Potassium Chloride 112 H Anion Gap 20.0 H BUN 75 H Creatinine 2.4 H Glucose 267 H Osmolality 363 H Uric Acid Calcium Phosphorus Magnesium Total Bilirubin Direct Bilirubin GGT AST Lactate Dehydrogenase Total Protein Albumin Urine Occult Blood Hyaline Casts Vancomycin Trough 23.0 H* 05/18/17 05/18/17 06:34 06:34 WBC 12.5 H RBC 4.34 L Hct MCV 109.6 H MCH 36.4 H RDW 20.3 H Plt Count 112 L Gran % 92.9 H Lymph % (Auto) 4.3 L Gran # 11.6 H Lymph # (Auto) 0.5 L Sodium 157 H Potassium Chloride 111 H Anion Gap 19.0 H BUN 73 H Creatinine 2.7 H Glucose 252 H Osmolality Uric Acid 14.1 H Calcium Phosphorus 4.9 H Magnesium 3.0 H Total Bilirubin 4.5 H Direct Bilirubin 2.2 H GGT 68 H AST 40 H Lactate Dehydrogenase 495 H Total Protein Albumin Urine Occult Blood Hyaline Casts Vancomycin Trough Meds: Medications Hydrocodone Bitart/Acetaminophen ([place] 5/325mg) 1 tab PO Q4HP PRN PRN Reason: Pain Albuterol/Ipratropium (Duoneb) 3 ml NEB Q4HRT [facility] Last Admin: 05/20/17 10:30 Dose: 3 ml Dextrose (Dextrose 50%) 0 ml IV UD PRN PRN Reason: Hypoglycemia Diagnostic Test (Pha) (Accu-Chek) 1 each FS Q6 [facility] Last Admin: 05/20/17 12:19 Dose: 1 each Furosemide (Lasix) 60 mg IV DAILY [facility] Last Admin: 05/20/17 10:00 Dose: 60 mg Heparin Sodium (Porcine) (Heparin) 5,000 unit SQ Q12 [facility] Last Admin: 05/20/17 09:59 Dose: 5,000 unit Piperacillin Sod/Tazobactam (Sod 2.25 gm/ Dextrose) 50 mls @ 100 mls/hr IV Q6H [facility] Last Admin: 05/20/17 12:21 Dose: 100 mls/hr Acetaminophen (Ofirmev) 650 mg in 65 mls @ 130 mls/hr IV Q6H [facility] Last Infusion: 05/20/17 10:49 Dose: Infused Insulin Glargine (Lantus) 20 unit SQ DAILY [facility] Last Admin: 05/20/17 09:59 Dose: 20 unit Insulin Human Lispro (Humalog) 0 unit SQ Q6 [facility] PRN Reason: Protocol Last Admin: 05/20/17 12:19 Dose: Not Given Levothyroxine Sodium (Synthroid) 25 mcg PO ACB [facility] Last Admin: 05/20/17 09:52 Dose: Not Given Lorazepam (Ativan) 0.5 mg IV Q6HP PRN PRN Reason: ANXIETY/SEDATION Last Admin: 05/15/17 14:08 Dose: 0.5 mg Methylprednisolone Sodium Succinate (Solu-Medrol) 62.5 mg IV DAILY [facility] Last Admin: 05/20/17 10:01 Dose: 62.5 mg Naloxone HCl (Narcan) 0.1 mg IV Q2MIN PRN PRN Reason: Opiate Reversal Ondansetron HCl (Zofran) 4 mg IV Q4HP PRN PRN Reason: Nausea And Vomiting Potassium Chloride (Kdur) 20 meq PO BIDCC [facility] Last Admin: 05/20/17 09:52 Dose: Not Given Simvastatin (Zocor) 5 mg PO DAILY [facility] Last Admin: 05/20/17 09:53 Dose: Not Given Sodium Chloride (Saline Flush) 10 ml IV Q8 [facility] Last Admin: 05/20/17 05:33 Dose: 10 ml Vancomycin HCl (Vancomycin Per Pharmacy) 1 order IV UD [facility] Medical - PN: A/P - Time Spent With Patient Total time spent is greater than 50% in coordination of care (as documented) at patient's floor/unit and/or counseling patient: - Narrative A/P Narrative: A/P Sepsis Lactic Acidosis Congestive heart failure, poor lvef as per last echo. 20% lvef early this year Altered mental status,/ septic Encephalopathy/ ? occult brainstem cva? Chronic Kidney Disease acute on chr renal failiure. thrombocytopenia Reactive Air way disease HTN Coronary Artery disease Delirium NSVT on tele short run of 3-7 beats Hypernatremia. resolved. Acute respiratory failure, Plan WBC stable, trending up, but procalitonin is negative. on vanco and zosyn off d5 drip now, continue to monitor closely, monitor lytes off bipap today, still has kussmaul breathing pattern continue diuresis, to aim for neg balance, but try to keep sodium in normal range, Not a candidate for NG tube and free water administration given poor mental status. echo shows very poor ejection fraction. continue prn bipap possible that lactic acidosis is from severe chf, repeat ABG done today shows normal lactic acid. bp stable for now continue steroids and duonebs for wheezing, try to wean off steroids as possible. renall function practically unchanged today. Glucose high, but being managed with launts and sliding scale, unable to tolerate much orally, has not eaten much in 8 days, Consider palliative care given advanced CHF, CVA and CKD. High risk of mortality given his multiple comorbid factors and presence of sepsis discussed with , Patient is DNR, aware that he may not survive this admission and we may have to make him comfort care NPO diet for now, ST to evaluate if patietns mental status improves. OT/ST/ PT eval once mental status improves hep sq for dvt prophylaxis. Medical - PN: Qual - VTE Deep Vein Thrombosis/Pulmonary Embolism Present on Admission: No
[2017-05-21] MEDS: PIPERACILLIN SODIUM/TAZOBACTAM 2.25 GM in DEXTROSE 5% IN WATER 50 ML IV SCH ×4 (00:08→18:09)
[2017-05-21] MEDS: INSULIN LISPRO 1 UNIT/0.01 ML UNIT SQ SCH ×4 (00:09→18:09)
[2017-05-21] MEDS: IPRATROPIUM/ALBUTEROL 3 ML AMPUL.NEB NEB SCH ×2 (03:08→07:33)
[2017-05-21] MEDS: ACETAMINOPHEN 650 MG/65 ML BOTTLE IV SCH ×3 (04:31→16:21)
[2017-05-21] MEDS: 0.9 % SODIUM CHLORIDE 10 ML SYRINGE IV SCH ×3 (05:52→21:13)
[2017-05-21 06:30] LABS: ALT/SGPT 42 U/l (0-40); Albumin 3.2 gm/dL (3.2-5.2); Albumin/Globulin Ratio 1.3 (1.0-2.3); Alkaline Phosphatase 57 U/L (39-117); Bilirubin,Direct 1.8 mg/dL (0.0-0.3); Blood Urea Nitrogen 70 mg/dl (8-23); Gamma Glutamyl Transpeptidase 99 U/L (8-61); Magnesium 2.6 mg/dL (1.6-2.5); Uric Acid 10.4 mg/dL (2.5-8.0)
[2017-05-21] MEDS ORDERED: DEXTROSE 5% IN WATER 1,000 ML IV SCH (07:30)
[2017-05-21 07:33] LABS: Basophils # (Auto) 0 K/mcL (0.0-0.3); Basophils % (Auto) 0 % (0.0-2.0); Eosinophils # (Auto) 0.1 K/mcL (0.0-0.7); Eosinophils % (Auto) 0.5 % (0.0-7.0); Granulocytes % (Auto) 92.5 % (38.0-78.0); Lymphocytes # (Auto) 0.5 K/mcL (1.5-4.8); Mean Cell Volume 109.1 fL (80.0-100.0); Mean Corpuscular Hemoglobin 36.1 pg (26.0-34.0); Monocytes # (Auto) 0.2 K/mcL (0.1-0.9); Platelet Count 116 K/mcL (140-440); Red Cell Distribution Width 19.5 % (11.5-14.5)
[2017-05-21] MEDS: LEVOTHYROXINE 25 MCG TABLET PO SCH (08:05)
[2017-05-21] MEDS: POTASSIUM CHLORIDE 20 MEQ TABLET PO SCH (08:05)
[2017-05-21] MEDS: SIMVASTATIN 10 MG TABLET PO SCH (08:05)
[2017-05-21] MEDS: FUROSEMIDE 100 MG/10 ML VIAL IV SCH (08:10)
[2017-05-21] MEDS: INSULIN GLARGINE, HUMAN 1 UNIT/0.01 ML SQ SCH (08:10)
[2017-05-21] MEDS: HEPARIN 5,000 UNIT/ML VIAL SQ SCH ×2 (08:11→21:13)
[2017-05-21] MEDS: methylPREDNISolone SOD SUCC 125 MG/2 ML VIAL IV SCH (08:11)
[2017-05-21] MEDS ORDERED: VANCOMYCIN 1,000 MG in 0.9 % SODIUM CHLORIDE 250 ML IV ONE (09:00)
--- NOTE | 2017-05-21 11:33 | Internal Med Progress Note ---
Medical - PN: Subj Patient information: Note initiated : 05/21/17 at 11:33 am Service Date, if different from initiated Date: [] Patient: Tico Dominguez 86 y/o M admitted on 05/12/17 for SOB, Wheezing/UTI, Sepsis. Chief Complaint: [] Interval history: Mr. Dominguez is a 86 year old Male with multple medical issues presents to the ER with shortness of breath, weakness and possibly some confusion. The patient is a very poor historian and did not provide any meaningful history , his who volunteer in this hospital was at bedside who provided much of the history The patient has multiple medical issues and has been progressively getting worse over the last 2-3 weeks. he has been more weak, tired fatigued and progressively more short of breath and has been wheezing. She has noticed that his effort tolerance has reduced significantly. His condition deteriorated more rapidly over the last 1 week. He fell down and scrapped his knee. The patient notes the only symptom he has is that he is feeling cold. Beyond that he did not complain much. According to the the patient also has had some decline in his mental status. In the ER his temp was on the lower end, labs showed wbc 6.7, ghb 12.2, NA 138, K 4.9, bicarb 20, creat 2.2 (has ckd) glucose 124. D dmier was 7, Lactic acide 3.7, bNP 32196, trop neg Ua suggestive of UTI, muro placed with significant amount of cloudy urine. CXR done which showed mild chf, no pneumonia VQ scan done which was negative for PE. The patient was therefore admitted to the hospital for further management May 13 Patient seen examined overnight patient became more agitated and anxious, trying to get out of bed, aggresive to wards care staff and provider needing restrains to keep him harming self and removing medical devices. He remained calm during the day, He has intermittent wheezing in the day. CT chest done showed CHF K was elevated this AM responded well to IV lasix, repeat came down to normal levels Plan to continue iV abx, duonebs and steroids, IV lasix today May 14 patient seen examined drowsy this am, opened eyes to verbal commands and light touch, but did not follow commands sedative given around 3am patient in restraints to avoid harm to self and care providers. to prevent removal of medical devices. His lactic acid was elevated again today, bolus given recheck given his pseudomonas in past was senstive to cipro, change cefepime to cipro, given some cases of cefepime induced encephalophathy. CT scan chest did not show any e/o bronchial lesion to expalin uppe airway wheeze which is intermittent. May 15 Patient seen examined no acute overnight issues some nsvt on tele patient still in restraints, does not follow commands and is fairly agitated during exam he otherwise sleeps ok CT head is neg, CT abdo pelvis without contrast shows some thickened bladder, but no other sourse of infection he has pooor urine output. but his bp is stable, His Lactate remains elevated May 16 Patient seen examined no acute issues overnight, still confused remains in restraints, intermittent tachypenai followed by periods of normal breathing. Lactate remains elevated patient was at bedside, educated and updated on patients critical condition , she is thankful and seems to understand poor prognosis. He is on vanco and zosyn, for now. monitor closely May 17 patient seen examined, no acute overnight issues, did respond somewhat to the diuretics started last night placed on bipap this AM, given that his condition worsened. his breathing is chyene shanks type pattern CT head is neg but difficult to r/o occult stroke cxr shows pulmonary edema nad chf can also present in this fashion, therefore patient is being aggressively diuresed At this point given stability on bp I think that the lactic acidosis is more from chf, resp issues than hypoperfusion of sepsis. hold off on any more fluids Again discussed with the that he may not make it through this admission given his resp and cardiac issue. she is aware and notes she is preparing her family for bad news. may 18 Patient seen examined, overnight events noted Plan of care reviewed with family Patient still tachypenic with kussmal breathig xray chest this AM is better he remains of bipap his sodium level keeps trending up, Nephrology consulted IV d5 started to help build free water, Plan to hold off the lasix drip for now monitor his response and use prn IV lasix to help with his diuresis. May 19 patient seen examined, mental status remains poor, he was able to open eyes today to my voice, He is still moaning, remains on bipap His sodium level is better today, his dose of lasix was held yesterday, WIll change to IV lasix 60 qday for now The patient sodium is improving, the patient changes is sodium are acute less than 24 hrs, therefore would not need to follow very strict corrections, none the less the correction is less than 12 in 24 hrs, starting yesterday AM to today AM. The patient remains negative Nephrology consult appreciated WBC is trending up, will cut back on steroids to once daily now Plan to wean off as tolerated May 20 Patient seen examined this am still drowsy, but not agitated, able to follow some commands, tried to verbalize name and let some concerns know, the pt labs are better, abg improved the patient still very drowsy, has not eaten or drank in 7-8 days remains on antibiotics I still think that the patient needs to be hospice, given his h/o cva, very severe, end stage chf, and ckd patient's seems to understand the overall poor prognosis, but the patients daugther in [facility] who is present at bedside, believes that the patient will eventually recover, the youngest son also apparently wants the patient to live. Explained to them again the poor prognosis and poor quality of life going forward. the rest of the family members as oper the pts are ok with whatever the patients decides. She is willing to talk with case management and hospice palliative teams to check their options At present I have stopped IVF and pt is off bipap, still has kussmal type breathing. not sure if occult brain stem stroke is present. May 21: Over the last 24 hours, the patient has continued to decline. Blood pressures intermittently dropped down into the 60s systolic, and temperature runs low as well. He is showing some mottling of his extremities. Blood pressures will run high if the automatic cuff reads when his arms are clenched. He is maintaining O2 saturations, but blood sugar had dropped to 55 this morning when nurses checked. Patient is n.p.o. at this time for severe dysphasia. He failed all trials yesterday. Kidney function is declining now as well. Sodium continues to run quite high, likely due to free water deficit, but IV fluids have been held because of severe CHF. He continues to be quite somnolent. He opens his eyes at time, but speech is fairly difficult to understand. He is not able to tell me who his is today. He was examined today in the presence of his . We reviewed that several organ systems seem to be failing, and that his prognosis is very poor. She says she is at peace with no longer doing very aggressive care. It is not certain that she is ready for "hospice care", but she agrees that he should not have a feeding tube or resuscitation. She would like us to work on keeping him comfortable. Several of his children are out of town, but she is trying to make sure they understand that they should come sometime soon. 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) Unspecified systolic heart failure (Chronic) Atherosclerotic heart disease of [place] coronary artery without angina pectoris (Chronic) Mixed hyperlipidemia (Chronic) Bradycardia (Chronic) Smoking (Chronic) CHF (congestive heart failure) (Chronic) Renal insufficiency (Chronic) CAD (coronary artery disease) (Chronic) Unspecified kidney failure (Chronic) Left leg cellulitis (Acute) Systolic heart failure, chronic (Acute) HTN (hypertension) (Acute) Peripheral vascular disease (Acute) Renal failure, acute on chronic (Acute) TIA (transient ischemic attack) (Chronic) - Constitutional Vitals: Vital Signs Temp Pulse Resp BP Pulse Ox 96.6 F L 76 12 55/39 90 05/21/17 08:00 05/21/17 03:43 05/21/17 08:00 05/21/17 08:00 05/21/17 08:00 Period Temp Pulse Resp BP Sys/Michael Pulse Ox Last 24 Hr 96.4 F-97.4 F 65-82 10-22 55-188/39-99 90-96 Intake and Output 05/20/17 05/21/17 05/21/17 21:59 05:59 13:59 Intake Total 165 / 165 180 / 180 Output Total 1000 / 1000 450 / 450 Balance -835 / -835 -270 / -270 Weight 151 lb 5 oz The patient is fairly somnolent. He will open his eyes to voice, but speech is difficult to understand. Neck is supple without obvious JVD. Cardiac exam rate and rhythm. Lungs: Appear clear to auscultation. Abdomen is soft, and appears nontender. Extremities: Show no significant edema. Fingers and toes are cool to the touch area Neurologic: The patient is awake at times, but he does not appear oriented. Nurses report he occasionally becomes more alert and will request things. Intake & Output: Intake & Output 05/20/17 05/21/17 05/21/17 21:59 05:59 13:59 Intake Total 165 / 165 180 / 180 Output Total 1000 / 1000 450 / 450 Balance -835 / -835 -270 / -270 Weight 151 lb 5 oz Intake: IV 165 / 165 180 / 180 Zosyn 2.25 gm In Dextrose 5% in 100 / 100 50 / 50 Water 50 ml @ 100 mls/hr IV Q6H [facility] Rx#:[id number] Output: Urine Catheter Amount 1000 / 1000 450 / 450 Other: # of times incontinent of 1 Bowels Medical - PN: Obj Da - Labs CBC & Chem 7: 05/21/17 03:40 05/21/17 03:40 Labs: Abnormal Lab Results 05/21/17 05/21/17 05/20/17 03:40 03:40 06:10 WBC RBC 4.20 L Hct MCV 109.1 H MCH 36.1 H RDW 19.5 H Plt Count 116 L Gran % 92.5 H Lymph % (Auto) 5.0 L Gran # 9.8 H Lymph # (Auto) 0.5 L Sodium 151 H Potassium Chloride Anion Gap 22.0 H BUN 70 H 62 H Creatinine 2.5 H 2.2 H Glucose 109 H 207 H Uric Acid 10.4 H 9.6 H Calcium 8.0 L 7.4 L Phosphorus 6.0 H* Magnesium 2.6 H Total Bilirubin 3.9 H 3.2 H Direct Bilirubin 1.8 H 1.7 H GGT 99 H 74 H AST 42 H ALT 42 H Lactate Dehydrogenase 535 H 520 H Total Protein 5.7 L 5.2 L Albumin 2.8 L Urine Occult Blood Hyaline Casts 05/20/17 05/19/17 05/19/17 06:10 22:50 18:55 WBC 16.7 H RBC 3.74 L Hct 40.4 L MCV 108.0 H MCH 36.3 H RDW 19.5 H Plt Count 89 L Gran % 95.3 H Lymph % (Auto) 2.5 L Gran # 15.9 H Lymph # (Auto) 0.4 L Sodium 148 H 148 H Potassium Chloride Anion Gap BUN 62 H 67 H Creatinine 2.0 H 2.4 H Glucose 196 H 254 H Uric Acid Calcium 7.6 L 7.8 L Phosphorus Magnesium Total Bilirubin Direct Bilirubin GGT AST ALT Lactate Dehydrogenase Total Protein Albumin Urine Occult Blood Hyaline Casts 05/19/17 05/19/17 05/19/17 14:25 09:35 06:00 WBC RBC Hct MCV MCH RDW Plt Count Gran % Lymph % (Auto) Gran # Lymph # (Auto) Sodium 150 H 148 H Potassium Chloride Anion Gap 17.0 H BUN 68 H 70 H 72 H Creatinine 2.1 H 2.3 H 2.4 H Glucose 297 H 249 H 352 H Uric Acid 12.0 H Calcium 7.4 L 7.8 L 7.8 L Phosphorus Magnesium Total Bilirubin 3.5 H Direct Bilirubin 1.7 H GGT AST ALT Lactate Dehydrogenase 479 H Total Protein 5.4 L Albumin 2.9 L Urine Occult Blood Hyaline Casts 05/19/17 05/19/17 05/18/17 06:00 02:40 20:08 WBC 17.8 H RBC 3.72 L Hct 40.7 L MCV 109.6 H MCH 36.6 H RDW 20.3 H Plt Count 104 L Gran % 94.1 H Lymph % (Auto) 2.3 L Gran # 16.7 H Lymph # (Auto) 0.4 L Sodium 151 H 156 H Potassium 2.7 L* Chloride 110 H Anion Gap 17.0 H BUN 74 H 78 H Creatinine 2.4 H 2.8 H Glucose 452 H* 297 H Uric Acid Calcium 8.0 L 8.2 L Phosphorus Magnesium Total Bilirubin Direct Bilirubin GGT AST ALT Lactate Dehydrogenase Total Protein Albumin Urine Occult Blood Hyaline Casts 05/18/17 05/18/17 05/18/17 17:57 16:46 12:11 WBC RBC Hct MCV MCH RDW Plt Count Gran % Lymph % (Auto) Gran # Lymph # (Auto) Sodium 160 H 159 H Potassium Chloride 110 H 112 H Anion Gap 23.0 H 20.0 H BUN 76 H 75 H Creatinine 2.6 H 2.4 H Glucose 311 H 267 H Uric Acid Calcium Phosphorus Magnesium Total Bilirubin Direct Bilirubin GGT AST ALT Lactate Dehydrogenase Total Protein Albumin Urine Occult Blood 0.2 A Hyaline Casts 5 H Meds: Medications Hydrocodone Bitart/Acetaminophen (Flomot 5/325mg) 1 tab PO Q4HP PRN PRN Reason: Pain Dextrose (Dextrose 50%) 0 ml IV UD PRN PRN Reason: Hypoglycemia Last Admin: 05/21/17 06:39 Dose: 25 ml Diagnostic Test (Pha) (Accu-Chek) 1 each FS Q6 [facility] Last Admin: 05/21/17 05:51 Dose: 1 each Furosemide (Lasix) 60 mg IV DAILY [facility] Last Admin: 05/21/17 08:10 Dose: 60 mg Heparin Sodium (Porcine) (Heparin) 5,000 unit SQ Q12 [facility] Last Admin: 05/21/17 08:11 Dose: 5,000 unit Piperacillin Sod/Tazobactam (Sod 2.25 gm/ Dextrose) 50 mls @ 100 mls/hr IV Q6H [facility] Last Admin: 05/21/17 05:34 Dose: 100 mls/hr Acetaminophen (Ofirmev) 650 mg in 65 mls @ 130 mls/hr IV Q6H [facility] Last Infusion: 05/21/17 05:34 Dose: Infused Dextrose (Dextrose 5% In Water) 1,000 mls @ 75 mls/hr IV .[id number] [facility] Last Admin: 05/21/17 08:05 Dose: 75 mls/hr Insulin Glargine (Lantus) 20 unit SQ DAILY [facility] Last Admin: 05/21/17 08:10 Dose: 20 unit Insulin Human Lispro (Humalog) 0 unit SQ Q6 [facility] PRN Reason: Protocol Last Admin: 05/21/17 05:52 Dose: Not Given Levothyroxine Sodium (Synthroid) 25 mcg PO ACB [facility] Last Admin: 05/21/17 08:05 Dose: Not Given Lorazepam (Ativan) 0.5 mg IV Q6HP PRN PRN Reason: ANXIETY/SEDATION Last Admin: 05/15/17 14:08 Dose: 0.5 mg Methylprednisolone Sodium Succinate (Solu-Medrol) 62.5 mg IV DAILY [facility] Last Admin: 05/21/17 08:11 Dose: 62.5 mg Naloxone HCl (Narcan) 0.1 mg IV Q2MIN PRN PRN Reason: Opiate Reversal Ondansetron HCl (Zofran) 4 mg IV Q4HP PRN PRN Reason: Nausea And Vomiting Potassium Chloride (Kdur) 20 meq PO BIDCC [facility] Last Admin: 05/21/17 08:05 Dose: Not Given Simvastatin (Zocor) 5 mg PO DAILY [facility] Last Admin: 05/21/17 08:05 Dose: Not Given Sodium Chloride (Saline Flush) 10 ml IV Q8 [facility] Last Admin: 05/21/17 05:52 Dose: 10 ml Vancomycin HCl (Vancomycin Per Pharmacy) 1 order IV UD [facility] Medical - PN: A/P - Time Spent With Patient Total time spent is greater than 50% in coordination of care (as documented) at patient's floor/unit and/or counseling patient: Greater than 35 minutes - Narrative A/P Narrative: A/P #1. Infectious disease. Patient presented with signs of shock, worrisome for sepsis. He did have evidence of UTI. He continues on treatment with Zosyn and vancomycin. 2. Cardiac. Patient has severe CHF, with ejection fraction approximately 20%. He had worsening CHF after admission, and needed BiPAP to support oxygenation. He was treated with a Lasix drip, and gradually improved. 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 3. Endocrine. Patient has worsening hypernatremia, likely due to overdiuresis and lack of free water. He has had essentially no oral intake over the last several days. -I have added low-dose D5W, although we are aware that this may trigger recurrent CHF symptoms. -Patient was hypoglycemic this morning, likely due to poor oral intake. Discontinue Lantus. Continue sliding scale insulin for now. #4. CODE STATUS: Patient is DNR. I discussed with his that with many organ systems failing, that his prognosis is very poor. She agrees that she does not want to pursue any sort of tube or parenteral feedings. She wants us to focus on comfort at this time. She is still trying to notify various children who are out of town. 5. Renal. Acute and chronic kidney disease. Sodium, BUN, creatinine continues to climb. We will continue with very low- dose D5W, and see if any of this corrects without causing recurrent CHF. #6. Neurologic. Patient has depressed mental status, due to acute illness. He has some periods of lucidity. Continue to follow. Next 7. Pulmonary. 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 Nebs as needed. -Social work to discuss hospice care with the family. The seems willing to move towards this, but other family members seem less so. hep sq for dvt prophylaxis. Approximately 35 minutes was spent today reviewing the patient's test results, examining the patient, reviewing plan of care with his and staff, and writing orders. Medical - PN: Qual - VTE Deep Vein Thrombosis/Pulmonary Embolism Present on Admission: No
--- NOTE | 2017-05-21 22:43 | Death Note ---
Discharge Sum: Prov - Provider Patient information: Note initiated : 05/21/17 at 10:41 pm Service Date, if different from initiated Date: [] Patient: Tico Dominguez 86 y/o M admitted on 05/12/17 for SOB, Wheezing/UTI, Sepsis. Chief Complaint: [] Primary care physician: Christi Santamaria Admitting clinician: Nina De La Paz Consults: 05/18/17 13:27 Consult to Physician [CONS] Routine Comment: hypernatremia, renal failuire Consulting Provider: Bess Lee Reason For Exam: Physician to Consult Pronouncing clinician: Cassidy Hayes Discharge Sum: Diag - PCOD Cause of : Congestive heart failure Discharge Sum: Summary - Date and Time Date of admission: 05/12/17 19:25 Date of : 05/21/17 - Summary Details: This elderly man with multiple medical problems was admitted with sepsis and urinary tract infection. He had a ishan course, and developed both congestive heart failure and renal failure exacerbations. Mental status never fully recovered. On his last day, his very poor prognosis was reviewed with his , who said she understood that he was at the end of his life, and did not wish to pursue any aggressive measures to try to prolong his life since he did not have much quality of life left. She was in the process of contacting numerous family members to come and say goodbye, but the patient late in the evening. The was notified. For further information, see the progress note from earlier today. - Additional Data Confirmation of as documented by pronouncing clinician: no pulse, no respirations, no heart sounds, pupils fixed and dilated Family: contacted Attending/PCP notified?: No Attending physician: Cassidy Hayes Was code activated?: No Autopsy requested?: No document examiner notified?: Yes Organ bank notified?: No Advance directives?: Yes Hospice patient?: No
== END 2017-05-21 23:01 | disposition expired | DRG 871 ==
LOC: ED 11:42 → ICU 11:42 → OBSVTOIN 19:00 → SUATTDRO 19:25 → ICU 19:26
PROVIDERS: ADMIT Internal Medicine; ATTEND Internal Medicine